=== PATIENT | male | born 1945 | race Caucasian/White ===

== ENCOUNTER 2020-01-31 08:44 | Inpatient (IN) | payer MEDICARE, OTHER ==
[2020-01-31] MEDS ORDERED: Albuterol Sulfate 2.5 mg/0.5 ml Neb ONE ×2 (08:54→08:57)
[2020-01-31] MEDS ORDERED: Magnesium 2 GM/50 ML BAG (IN WATER) ONE (08:54)
[2020-01-31] MEDS ORDERED: methylPREDNISolone Sod Succ/PF 125 MG/2 ML VIAL ONE (08:54)
--- NOTE | 2020-01-31 09:19 | RAD ---
Chest one view HISTORY: Respiratory distress. Intubated. FINDINGS: Cardiac silhouette is magnified by projection and partially obscured by shallow inspiration and prominent patchy infiltrates at each lung base. Mediastinum is midline. Tip of the endotracheal catheter approaches the shanna. Calcification of the aorta. Pulmonary vasculature is engorged. No evidence of pneumothorax. IMPRESSION : Endotracheal catheter should probably be withdrawn approximately Bibasilar infiltrates may reflect pneumonitis or be related pulmonary vascular congestion
--- NOTE | 2020-01-31 09:43 | CT ---
CT arteriogram chest with IV contrast and 3-D imaging HISTORY: Mastoid distress. COVID positive. FINDINGS: There is good contrast opacification pulmonary arteries and thoracic aorta with normal bran ashwin of the great vessels at the aortic arch. Prominent calcification throughout the coronary arteries and other arterial structures. Lungs are hyperinflated with prominent bullous changes at each upper lobe. Peripheral interstitial sc arring more pronounced at the lower lobes. Moderate bibasilar atelectasis. Peripheral, patchy groundglass infiltrates involve each lung, relatively sparing the emphysematous bu llae of the upper lobes. No pleural fluid or mediastinal adenopathy. Within the partially visualized upper abdomen, calculus of the right kidney measures at least 0.8 cm greatest diameter. Lobular cysts are present throughout the hepatic parenchyma. Chronic appearing compression deformity is noted at a vertebral body near the thoracolumbar junction. IMPRESSION : No CT evidence of pulmonary embolus. CT findings of COVID pneumonitis, when combined with prominent emphysematous changes, result in disea se involving the entirety of the lungs. Prominent atherosclerosis. Nonobstructing right renal calculus partially visualized.
[2020-01-31 09:53] LABS: Bilirubin Negative (Negative); Blood, Urine Negative (Negative); Clarity Clear (Clear); Glucose, Urine (Dipstick) 200 mg/dL (Negative); Ketone, Urine Negative (Negative); Leukocyte Negative Leu/uL (Negative); Nitrite Negative (Negative); Protein, Urine (Dipstick) 20 mg/dL (Neg-Trace); Specific Gravity, Urine 1.025 (1.002-1.036); Urobilinogen Normal mg/dL (Less than 2)
[2020-01-31 10:17] LABS: Actual Bicarbonate (HCO3a) 24.4 mEq/L (22-28); Analyzer IN Cardio ER; Calcium, Ionized (arterial) 1.25 mmol/L (1.12-1.30); Carboxyhemoglobin (COHb) 0.8 gm% (0.0-3.0); Hemoglobin (Hb) 15.6 g/dL (14.0-18.0); O2 Tension (PaO2), arterial 80.9 mmHg (> 70.0); Potassium - ABG Lab 3.96 mmol/L (3.70-5.30)
[2020-01-31 10:31] LABS: Actual Bicarbonate (HCO3a) 20.8 mEq/L (22-28); Analyzer IN Cardio ER; CO2 Tension 68.2 mmHg (35.0-45.0); Calcium, Ionized (arterial) 1.21 mmol/L (1.12-1.30); Carboxyhemoglobin (COHb) 1.1 gm% (0.0-3.0); Hemoglobin (Hb) 15.1 g/dL (14.0-18.0); Potassium - ABG Lab 4.59 mmol/L (3.70-5.30)
[2020-01-31 10:32] LABS: O2 Tension (PaO2), arterial 32.7 mmHg (> 70.0); Puncture Site LRA
[2020-01-31 10:34] LABS: #Eosinphils 0.1 thou/uL (0.0-0.7); #Lymphocytes 2.3 thou/uL (1.20-3.40); #Monocytes 0.8 thou/uL (0.11-0.59); #Neutrophils 13.4 thou/uL (1.40-6.50); %Basophils 0.1 % (0.0-1.0); %Eosinophils 0.4 % (0.0-10.0); %Lymphocytes 13.6 % (21.0-51.0); %Monocytes 4.7 % (0.0-10.0); %Neutrophils 81.1 % (42.0-75.0); Hemoglobin 15.5 g/dL (14.0-18.0); Mean Corpuscular HGB CONC 32.9 g/dL (32.0-36.0); Mean Corpuscular Volume 88.1 fL (78.0-98.0); Mean Platelet Volume 8.7 fL (7.4-10.4); Platelet Count 318 thou/uL (130-400); RBC Distribution Width 13.2 % (11.5-14.5); Red Blood Cell (RBC) Count 5.33 mill/uL (4.70-6.10); White Blood Cell (WBC) Count 16.5 thou/uL (4.8-10.8)
[2020-01-31] MEDS ORDERED: Azithromycin 500 MG VIAL ONE (10:37)
[2020-01-31 10:38] LABS: CO2 Tension 85.4 mmHg (35.0-45.0); Puncture Site LRA; pH, Arterial 7.07 (7.35-7.45)
[2020-01-31] MEDS ORDERED: fentaNYL Citrate/PF 2,000 MCG in Sodium Chloride 0.9% 60 ML IV SCH (10:45)
[2020-01-31 10:47] LABS: ALT (SGPT) 16 U/L (8-55); AST (SGOT) 34 U/L (5-34); Albumin 3.7 g/dL (3.4-4.8); Alkaline Phosphatase 65 U/L (40-110); Anion Gap 21 mmol/L (10-20); BUN (Urea Nitrogen) 51 mg/dL (8.4-25.7); Bilirubin, Total 0.5 mg/dL (0.2-1.2); Calc. Creatinine Clearance 0 mL/min (70-130); Calcium 8.9 mg/dL (7.8-10.44); Carbon Dioxide 20 mmol/L (23-31); Chloride 95 mmol/L (98-107); Estimated GFR-MDRD 41; Globulin 3.4 g/dL (2.4-3.5); Glucose 456 mg/dL (83-110); Protein, Total 7.1 g/dL (5.8-8.1); Sodium 132 mmol/L (136-145)
[2020-01-31 11:18] LABS: CKMB 1.2 ng/mL (0-6.6)
[2020-01-31] MEDS ORDERED: Ventilator Sedation Protocol 1 EACH FS ONE (12:53)
[2020-01-31] MEDS ORDERED: Labetalol HCl 100 MG/20 ML VIAL SLOW IVP PRN (12:53)
[2020-01-31] MEDS ORDERED: Dextrose 5% in Water 1,000 ML IV PRN (12:53)
[2020-01-31] MEDS ORDERED: Dextrose 50% Abboject 50 ML SYRINGE SLOW IVP PRN (12:53)
[2020-01-31] MEDS ORDERED: HumaLOG 300 UNITS/3 ML VIAL SC PRN (12:53)
[2020-01-31] MEDS ORDERED: Ondansetron PF 4 MG/2 ML Vial IVP PRN (12:53)
[2020-01-31] MEDS ORDERED: Vecuronium 10 MG VIAL ONE (12:55)
[2020-01-31] MEDS ORDERED: Sterile Water 0 ML ONE (12:55)
[2020-01-31] MEDS ORDERED: Sterile Water 10 ML ONE ×3 (12:57→22:01)
[2020-01-31] MEDS ORDERED: DISCONTINUE PREVIOUS NARCOTIC PAIN MEDICATIONS AND BENZODIAZEPINES FS SCH (13:09)
[2020-01-31] MEDS ORDERED: Morphine 2 MG/ML VIAL SLOW IVP PRN (13:09)
[2020-01-31] MEDS ORDERED: Propofol BOLUS 1,000 MG/100 ML VIAL IV PRN (13:09)
[2020-01-31] MEDS ORDERED: Fentanyl BOLUS 250 ML IVPB PRN (13:09)
[2020-01-31 13:19] LABS: Base Excess (BEa) -9.9 mEq/L (-2.0 to +3.0); CO2 Tension 53.9 mmHg (35.0-45.0); Calcium, Ionized (arterial) 1.19 mmol/L (1.12-1.30); Carboxyhemoglobin (COHb) 0.8 gm% (0.0-3.0); Hemoglobin (Hb) 14.3 g/dL (14.0-18.0); Potassium - ABG Lab 4.46 mmol/L (3.70-5.30)
[2020-01-31] MEDS: Nitroglycerin 2% Ointment 1 INCH/1 GM Packet TOP SCH ×2 (14:40→20:05)
[2020-01-31] MEDS: Sodium Bicarbonate 150 MEQ in Dextrose 5% in Water 1,000 ML IV SCH (14:49)
[2020-01-31] MEDS: cefTRIAXone\\ROCEPHIN 1 GM in Sodium Chloride 0.9% 100 ML IVPB SCH (14:50)
[2020-01-31] MEDS ORDERED: Iopamidol-370 76% 500 ML 1 ML ONE (14:52)
[2020-01-31] MEDS: HUMULIN R 100 UNITS in Sodium Chloride 0.9% 100 ML IVPB SCH ×2 (14:52→20:45)
[2020-01-31] MEDS: Vecuronium 10 MG VIAL IVP PRN ×3 (16:15→22:03)
[2020-01-31 16:27] LABS: O2 Tension (PaO2), arterial 58.5 mmHg (> 70.0); Puncture Site LRA; pH, Arterial 7.17 (7.35-7.45)
[2020-01-31 16:28] LABS: ALV-art Gradient 587.125 (0-20)
--- NOTE | 2020-01-31 16:49 | RAD ---
PORTABLE CHEST: History: ET tube placement Comparison: Earlier today. FINDINGS: ET tube has been retracted and now above the shanna. Central line is in adequate position with tip ov erlying the SVC. Bilateral infiltrates, more confluent on the right again noted. No acute interval change. IMPRESSION: As above. POS: AGW
[2020-01-31] MEDS: Hydrocortisone Sod Succ/PF 100 mg/2 ml Vial IVP SCH (17:03)
[2020-01-31] MEDS: Famotidine/PF 20 mg/2ml Vial SLOW IVP SCH (20:04)
[2020-01-31] MEDS: Nystatin Cream 15 GM TUBE TOP SCH (20:04)
[2020-01-31] MEDS: Norepinephrine 8 MG/0.9% NS 250 ML IVPB SCH (20:45)
[2020-01-31] MEDS: fentaNYL Citrate/PF 2,000 MCG in Sodium Chloride 0.9% 60 ML IV SCH (22:13)
[2020-02-01] MEDS: Hydrocortisone Sod Succ/PF 100 mg/2 ml Vial IVP SCH ×4 (00:04→17:30)
[2020-02-01] MEDS: HUMULIN R 100 UNITS in Sodium Chloride 0.9% 100 ML IVPB SCH ×2 (00:04→14:24)
[2020-02-01] MEDS: Lorazepam 2 MG/ML VIAL SLOW IVP PRN ×5 (00:50→19:56)
[2020-02-01] MEDS: Vecuronium 10 MG VIAL IVP PRN ×6 (01:21→19:56)
[2020-02-01] MEDS: Sodium Bicarbonate 150 MEQ in Dextrose 5% in Water 1,000 ML IV SCH ×2 (01:21→08:00)
[2020-02-01 04:42] LABS: Anion Gap 16 mmol/L (10-20); BUN (Urea Nitrogen) 60 mg/dL (8.4-25.7); Calc. Creatinine Clearance 41 mL/min (70-130); Calcium 8.2 mg/dL (7.8-10.44); Carbon Dioxide 29 mmol/L (23-31); Chloride 98 mmol/L (98-107); Estimated GFR-MDRD 34; Glucose 168 mg/dL (83-110); Potassium 3.7 mmol/L (3.5-5.1); Sodium 139 mmol/L (136-145)
[2020-02-01 04:50] LABS: Hemoglobin 12.7 g/dL (14.0-18.0); Mean Corpuscular HGB CONC 33.1 g/dL (32.0-36.0); Mean Corpuscular Hemoglobin 29.3 pg (27.0-31.0); Mean Corpuscular Volume 88.4 fL (78.0-98.0); Mean Platelet Volume 8.1 fL (7.4-10.4); Platelet Count 281 thou/uL (130-400); Red Blood Cell (RBC) Count 4.34 mill/uL (4.70-6.10); White Blood Cell (WBC) Count 17.3 thou/uL (4.8-10.8)
[2020-02-01 04:51] LABS: Band 23 % (5-11); Lymphocytes 6 % (21-51); MDiff Complete? YES; Monocytes 4 % (0-10); Nucleated RBC 1 % (0)
[2020-02-01] MEDS: Nitroglycerin 2% Ointment 1 INCH/1 GM Packet TOP SCH ×3 (05:30→20:50)
[2020-02-01] MEDS: Propofol 1,000 MG/100 ML VIAL IV PRN ×2 (06:01→19:55)
[2020-02-01 07:21] LABS: Base Excess (BEa) 3.7 mEq/L (-2.0 to +3.0); CO2 Tension 58.3 mmHg (35.0-45.0); Calcium, Ionized (arterial) 1.12 mmol/L (1.12-1.30); Carboxyhemoglobin (COHb) 0.4 gm% (0.0-3.0); Hemoglobin (Hb) 14.4 g/dL (14.0-18.0); O2 Tension (PaO2), arterial 61.9 mmHg (> 70.0); Potassium - ABG Lab 3.68 mmol/L (3.70-5.30); pH, Arterial 7.34 (7.35-7.45)
[2020-02-01 07:24] LABS: ALV-art Gradient 221.725 (0-20); Puncture Site LRA
[2020-02-01] MEDS: Famotidine/PF 20 mg/2ml Vial SLOW IVP SCH ×2 (08:52→19:56)
[2020-02-01] MEDS: Nystatin Cream 15 GM TUBE TOP SCH ×2 (08:53→19:55)
[2020-02-01] MEDS ORDERED: Enoxaparin Sodium 40 MG/0.4 ML SYRINGE SC SCH (09:00)
[2020-02-01] MEDS: Dextrose 5 %-0.45 % NaCl 1,000 ML IV SCH ×2 (09:31→21:57)
[2020-02-01] MEDS: fentaNYL Citrate/PF 2,000 MCG in Sodium Chloride 0.9% 60 ML IV SCH (09:41)
[2020-02-01] MEDS: Azithromycin 500 MG in Sodium Chloride 0.9% 250 ML 250 ML IVPB SCH (10:34)
[2020-02-01] MEDS: Norepinephrine 8 MG/0.9% NS 250 ML IVPB SCH (10:49)
--- NOTE | 2020-02-01 10:49 | PRG ---
DATE OF SERVICE: 02/01/2020 35 minutes of critical care time. SUBJECTIVE: This patient remains intubated in a prone position, on mechanical ventilation. OBJECTIVE: VITAL SIGNS: His temperature is 98.2, pulse 108, blood pressure 135/77, O2 saturation 96%. 24-hour intake 2822, output 1027. HEENT: Unremarkable. NECK: No JVD. LUNGS: Coarse breath sounds. CARDIAC: S1 and S2. Slightly tachycardic. ABDOMEN: Soft. EXTREMITIES: No edema. LABORATORY DATA: Ferritin of 4533. Sodium 139, potassium 3.7, chloride 98, CO2 of 29, BUN 60, creatinine 1.9, glucose 168. White blood cell count 17.3, hematocrit 38.4, and platelet count 281, 23% bands. PH of 7.34, pCO2 of 58, pO2 of 61, that is on bilevel rate 26 with FiO2 of 50%, high PEEP pressure 23, low PEEP pressure 12. Chest x-ray continues to show bilateral infiltrates, although improved lung volumes. ASSESSMENT: 1. COVID-19 pneumonia. 2. Acute hypoxic respiratory failure requiring mechanical ventilation. 3. Diabetes mellitus with poor control. PLAN: 1. The metabolic acidosis seems to have been corrected with the bicarbonate drip. We can go ahead and stop the bicarbonate infusion. 2. Continue low-dose insulin infusion. 3. Continue steroids. 4. Increase anticoagulant dose. 5. I will update family. 6. Prognosis is extremely poor. Job ID: [id number]
--- NOTE | 2020-02-01 10:58 | PDOC.HOSPP ---
- Subjective Encounter Date: 02/01/20 Encounter Time: 10:56 Subjective: Mr. Duque was seen at a distance for respiratory failure due to COVID Pneumonia. He remains intubated in prone position. - Objective Vital Signs & Weight: Vital Signs (12 hours) Temp Pulse Resp BP Pulse Ox 02/01/20 10:48 111 H 137/74 02/01/20 10:00 26 H 02/01/20 08:00 26 H 02/01/20 07:19 95 02/01/20 07:04 110 H 151/82 H 02/01/20 06:00 26 H 02/01/20 04:00 98.2 F 26 H 02/01/20 02:27 93 107/60 02/01/20 02:00 26 H 02/01/20 00:00 98.0 F 26 H Weight Weight 188 lb 4.396 oz Most Recent Monitor Data Heart Rate from ECG 108 NIBP 121/73 NIBP BP-Mean 89 Respiration from ECG 26 SpO2 94 I&O: 01/31/20 02/01/20 02/02/20 06:59 06:59 06:59 Intake Total 2822.2 0 Output Total 1027 10 Balance 1795.2 -10 Result Diagrams: 02/01/20 04:02 02/01/20 04:02 Additional Labs: Accuchecks 02/01/20 02/01/20 02/01/20 09:17 06:21 05:37 POC Glucose 290 H 224 H 201 H 02/01/20 02/01/20 02/01/20 04:10 03:16 02:26 POC Glucose 174 H 206 H 227 H 02/01/20 02/01/20 01/31/20 01:05 00:14 23:17 POC Glucose 282 H 328 H 377 H 01/31/20 01/31/20 01/31/20 22:13 21:01 20:12 POC Glucose 450 H 496 H 496 H 01/31/20 01/31/20 01/31/20 18:39 13:57 12:25 POC Glucose Greater than 550 H* 539 H 521 H Hospitalist ROS - Medication Medications: Active Medications Generic Name Dose Route Start Last Admin Trade Name Freq PRN Reason Stop Dose Admin Famotidine 20 mg 01/31/20 21:00 02/01/20 08:52 Pepcid SLOW IVP 20 mg Q12HR DHAVAL Administration Hydrocortisone Sodium Succinate 100 mg 01/31/20 18:00 02/01/20 05:29 Solu-Cortef IVP 100 mg Q6HR DHAVAL Administration Azithromycin 500 mg/ Sodium 250 mls @ 250 mls/hr 02/01/20 11:00 02/01/20 10: 34 Chloride IVPB 250 mls 1100 DHAVAL Administration Ceftriaxone Sodium 1 gm/ 100 mls @ 200 mls/hr 01/31/20 14:00 01/31/20 14:50 Sodium Chloride IVPB 100 mls 1400 DHAVAL Administration Insulin Human Regular 100 101 mls @ 0 mls/hr 01/31/20 13:00 02/01/20 00:04 units/ Sodium Chloride IVPB 101 mls INF DHAVAL Administration Protocol Titrate Norepinephrine Bitartrate 250 mls @ 0 mls/hr 01/31/20 13:00 02/01/20 10:49 Levophed IVPB 250 mls INF DHAVAL Administration Protocol Titrate Fentanyl Citrate 2,000 mcg/ 100 mls @ 0 mls/hr 01/31/20 13:09 02/01/20 09:41 Sodium Chloride IV 03/01/20 13:09 100 mls INF DHAVAL Administration Protocol Per Protocol Dextrose/Sodium Chloride 1,000 mls @ 75 mls/hr 02/01/20 09:15 02/01/20 09:31 D5 1/2 Ns IV Not Given .[id number] DHAVAL Lorazepam 2 mg 01/31/20 13:09 02/01/20 09:17 Ativan SLOW IVP 03/01/20 13:09 2 mg Q1H PRN Administration Breakthrough agitation Nitroglycerin 0.5 inch 01/31/20 14:00 02/01/20 05:30 Nitro-Bid 2% Ointment TOP Not Given Q8HR DHAVAL Nystatin 1 gm 01/31/20 21:00 02/01/20 08:53 Mycostatin Cream TOP 1 gm BID DHAVAL Administration Propofol 1,000 mg 01/31/20 13:09 02/01/20 06:01 Diprivan IV 03/01/20 13:09 1,000 mg INF PRN Administration TO ACHIEVE GOAL RASS Protocol Sodium Chloride 10 ml 01/31/20 21:00 02/01/20 08:53 Flush - Normal Saline IVF 10 ml Q12HR DHAVAL Administration Vecuronium [place] 10 mg 01/31/20 12:53 02/01/20 09:17 Norcuron IVP 10 mg Q30MIN PRN Administration Agitation Hosp A/P (1) Acute respiratory failure due to COVID-19 Code(s): U07.1 - COVID-19; J96.00 - ACUTE RESPIRATORY FAILURE, UNSP W HYPOXIA OR HYPERCAPNIA Status: Acute (2) Acute respiratory failure with hypoxemia Code(s): J96.01 - ACUTE RESPIRATORY FAILURE WITH HYPOXIA Status: Acute (3) Hypertension Code(s): I10 - ESSENTIAL (PRIMARY) HYPERTENSION Status: Chronic (4) Diabetes mellitus type 2 in nonobese Code(s): E11.9 - TYPE 2 DIABETES MELLITUS WITHOUT COMPLICATIONS Status: Chronic (5) Septic shock Code(s): A41.9 - SEPSIS, UNSPECIFIED ORGANISM; R65.21 - SEVERE SEPSIS WITH SEPTIC SHOCK Status: Acute - Plan * Acute respiratory failure due to COVID pneumonia- he remains intubated in prone position * Continue Azithromycin and Rocephin, and Stress dose steroids * DM- blood glucose is elevated- will add Lantus, and Continue SSI * Agree with increasing the anticoagulation dose * Septic Shock- He continue to require pressor support * Prognosis is guarded
[2020-02-01] MEDS ORDERED: Insulin Glargine 10 UNITS in Pre-Filled Syringe 1 EACH SC SCH (11:15)
[2020-02-01] MEDS: cefTRIAXone\\ROCEPHIN 1 GM in Sodium Chloride 0.9% 100 ML IVPB SCH (13:13)
--- NOTE | 2020-02-01 15:59 | OP ---
DATE OF PROCEDURE: 01/31/2020 PROCEDURE: Central line placement. PREOPERATIVE DIAGNOSIS: Poor IV access. POSTOPERATIVE DIAGNOSIS: Successful left subclavian central line placement. ANESTHESIA: None. DESCRIPTION OF PROCEDURE: This was done on an emergent basis as the patient was being prone ventilated and needed Levophed for hypotension. SUBJECTIVE: The patient was placed in the supine position in Trendelenburg. The left subclavian area was 1st shaved and hair was removed. The area was cleansed with chlorhexidine and draped sterilely. Using modified Seldinger technique, a triple-lumen catheter was placed in the left subclavian vein. Initially, I had a hard time passing the dilator over the wire, so I had to get a 2nd kit and re-stick him. Second attempt was successful in placing the central line in the left subclavian vein. Three ports flushed venous blood. Confirmation was confirmed by x-ray. There was no pneumothorax. Job ID: [id number]
--- NOTE | 2020-02-01 16:19 | CON ---
DATE OF CONSULTATION: 01/31/2020 REASON FOR CONSULTATION: COVID pneumonia. The following encompasses 1 hour of critical care time. CONSULTING PHYSICIAN: Jin Hernandez MD HISTORY OF PRESENT ILLNESS: This is a 74-year-old male of [place] descent, who was diagnosed with COVID virus about 10 days ago. He was doing reasonably well at home until today when he became so short of breath that his called paramedics. He was intubated en route to the hospital. In the ER, he was so hypoxic, he had to be prone, ventilated. PAST MEDICAL HISTORY: 1. Diabetes mellitus, type 2 of questionable control. 2. Hypertension. 3. Gout. PAST SURGICAL HISTORY: 1. Hernia repair. 2. Buttock abscess, incision and drainage. ALLERGIES: NONE. SOCIAL HISTORY: He quit smoking at age 35. Does not consume alcohol. Does not use illicit drugs. 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 MEDICATIONS: Prior to admission; 1. Metformin 500 mg two twice daily. 2. Lisinopril 12.5 mg twice daily. 3. Allopurinol 300 mg daily. 4. Simvastatin 40 mg nightly. 5. Amlodipine 10 mg daily. FAMILY MEDICAL HISTORY: Unremarkable except for the fact that his currently has COVID. REVIEW OF SYSTEMS: Cannot be obtained as the patient is currently on mechanical ventilation. PHYSICAL EXAMINATION: VITAL SIGNS: Blood pressure 82/53, pulse 100, respirations 26, O2 saturation 100%, and temperature 99.7. GENERAL: The patient is a heavyset male, who is intubated and sedated. HEENT: Pupils are reactive. Oropharynx, intubated. NECK: No adenopathy or JVD. LUNGS: Coarse breath sounds bilaterally. CARDIOVASCULAR: S1 and S2. Regular. ABDOMEN: Soft. EXTREMITIES: No edema. IMAGING: His CT of the chest shows diffuse bilateral infiltrates, more prominent on the right. LABORATORY DATA: Sodium 132, potassium 4, chloride 95, CO2 of 20, BUN 51, creatinine 1.6, and glucose 456. Lactate 4.7. Troponin 0.06. Albumin 3.7. PH of 7.07, pCO2 of 85, pO2 of 80 on assist control, rate 20, tidal volume 400, PEEP 10, and FiO2 of 100%. White blood cell count 16.5, hematocrit 47, and platelet count 318. ASSESSMENT: 1. COVID-19 pneumonia. 2. Acute hypoxic respiratory failure. 3. Uncontrolled diabetes mellitus. PLAN: 1. Prone position ventilation in bilevel mode. 2. IV steroids. 3. Convalescent plasma. 4. Anticoagulation - initially 40 mg daily, but increased dose tomorrow as he is currently using from a central line. 5. Insulin drip for blood sugar control. 6. Daily labs. 7. I spoke with the patient's on the phone. I told her that he is in poor shape and has about a 90% chance of succumbing to this illness. Job ID: [id number]
--- NOTE | 2020-02-01 19:07 | HP ---
PRIMARY CARE PHYSICIAN: Unknown. CHIEF COMPLAINT: Shortness of breath. HISTORY OF PRESENT ILLNESS: The history of present illness was taken from the ER records as the patient is currently unable to give a history as he was intubated. His is not in the emergency room. Mr. Duque is a 74-year-old gentleman who apparently has had COVID like symptoms since January 20 of this month, and he has been known COVID positive. He was apparently doing okay until just recently where he became progressively more short of breath and was coughing. His wanted him to come to the hospital yesterday, but she was unable to convince him to go to the ER. Today, he became progressively more short of breath and she called EMS. When they arrived, he had an O2 saturation that was reported to be in the 30s. He was intubated in the field and brought to the emergency room. His O2 sats fell in the 50s even while intubated. A CT scan was done to rule out PE, which was negative, and he was placed in the prone position. He has been given fentanyl, azithromycin, and magnesium as well as 125 mg of methylprednisolone. He is being admitted for further evaluation. Otherwise, no other history is currently obtainable. REVIEW OF SYSTEMS: Unobtainable as the patient was intubated. PAST MEDICAL HISTORY: Reported as being hypertension and diabetes mellitus. PAST SURGICAL HISTORY: Unknown. ALLERGIES: NO KNOWN DRUG ALLERGIES. SOCIAL HISTORY: Unobtainable. FAMILY HISTORY: Also unobtainable. CURRENT MEDICATIONS: The only medication that I am aware of is lisinopril, but these will need to be obtained. PHYSICAL EXAMINATION: GENERAL: He was intubated, sedated. VITAL SIGNS: Blood pressure was 176/101, heart rate 125, respiratory rate of 20, and temperature is 99.9. HEENT: Pupils are equal, round, and reactive. Extraocular muscles are intact. NECK: There is no jugular venous distention. LUNGS: He has decreased breath sounds as well as some rales at the bases. CARDIOVASCULAR: Heart rate is rapid, but regular. I was unable to appreciate any murmurs, clicks, or rubs. ABDOMEN: Soft. Positive bowel sounds. EXTREMITIES: There is no edema. No calf tenderness. No erythema. NEUROLOGIC: He is moving all extremities. SKIN AND INTEGUMENT: No obvious skin lesions or rashes. LABORATORY RESULTS: White blood cell count 16.5, hemoglobin 15.5, hematocrit is 47.0, and platelets 318. Sodium 132, potassium 4.0, chloride is 95, CO2 is 20, BUN is 51, creatinine 1.65, and glucose is 456. Urinalysis is essentially negative. The initial ABG; the pH is 7.1, pCO2 of 68.2, PO2 of 32.7, and this is on while he is ventilated with an SIMV of 18 FiO2 O2 of 100%. On x-ray, this is by my reading, cardiomegaly. He has right pleural effusion and bilateral infiltrates. His EKG appears to be sinus rhythm, is tachycardic. The heart rate is 130. He has a wide QRS complex, and it appears to be a right bundle-branch block. ASSESSMENT AND PLAN: 1. This is a 74-year-old gentleman who has known COVID infection, who presents with acute respiratory failure with hypoxemia. He also has sepsis with severe both metabolic and respiratory acidosis. He will be admitted to the ICU. He has already been given IV antibiotics as well as IV steroids, which will be continued. Continue ventilator support. He has been placed in the prone position. The siding coreboard inspector has already been consulted. He will be placed on deep venous thrombosis and gastrointestinal prophylaxis. He appears to be out of the window for remdesivir. However, we will defer to the supply specialist as to whether or not he would benefit from convalescent serum. 2. Diabetes mellitus. He will be placed on a sliding scale insulin. Start tube feedings. 3. Hypertension. This will be managed with p.r.n. medications, possibly transdermal patch, given the patient's overall comorbid conditions including hypertension, diabetes, and CT evidence of emphysema, the patient's prognosis is guarded. Job ID: [id number] MTDD
[2020-02-01] MEDS: Enoxaparin Sodium 40 MG/0.4 ML SYRINGE SC SCH (19:56)
[2020-02-02] MEDS: Hydrocortisone Sod Succ/PF 100 mg/2 ml Vial IVP SCH ×5 (00:10→23:42)
[2020-02-02] MEDS: Norepinephrine 8 MG/0.9% NS 250 ML IVPB SCH ×2 (01:21→12:32)
[2020-02-02] MEDS: Propofol 1,000 MG/100 ML VIAL IV PRN ×3 (04:04→23:42)
[2020-02-02] MEDS: Lorazepam 2 MG/ML VIAL SLOW IVP PRN ×4 (04:04→23:43)
[2020-02-02 04:49] LABS: Anion Gap 16 mmol/L (10-20); BUN (Urea Nitrogen) 65 mg/dL (8.4-25.7); Calc. Creatinine Clearance 38 mL/min (70-130); Calcium 7.9 mg/dL (7.8-10.44); Carbon Dioxide 28 mmol/L (23-31); Chloride 97 mmol/L (98-107); Estimated GFR-MDRD 31; Glucose 224 mg/dL (83-110); Potassium 4.1 mmol/L (3.5-5.1); Sodium 137 mmol/L (136-145)
[2020-02-02 05:03] LABS: Band 10 % (5-11); Hemoglobin 12.6 g/dL (14.0-18.0); Lymphocytes 4 % (21-51); MDiff Complete? YES; Mean Corpuscular Hemoglobin 29.3 pg (27.0-31.0); Mean Corpuscular Volume 88.7 fL (78.0-98.0); Mean Platelet Volume 8.1 fL (7.4-10.4); Monocytes 5 % (0-10); Platelet Count 329 thou/uL (130-400); RBC Distribution Width 13.3 % (11.5-14.5); Red Blood Cell (RBC) Count 4.31 mill/uL (4.70-6.10); White Blood Cell (WBC) Count 20.8 thou/uL (4.8-10.8)
[2020-02-02] MEDS: Nitroglycerin 2% Ointment 1 INCH/1 GM Packet TOP SCH ×3 (05:42→22:08)
[2020-02-02 07:15] LABS: Actual Bicarbonate (HCO3a) 29.1 mEq/L (22-28); Base Excess (BEa) 3.8 mEq/L (-2.0 to +3.0); CO2 Tension 46.9 mmHg (35.0-45.0); Carboxyhemoglobin (COHb) 0.6 gm% (0.0-3.0); Potassium - ABG Lab 3.85 mmol/L (3.70-5.30); pH, Arterial 7.41 (7.35-7.45)
[2020-02-02] MEDS: fentaNYL Citrate/PF 2,000 MCG in Sodium Chloride 0.9% 60 ML IV SCH (07:19)
--- NOTE | 2020-02-02 07:35 | RAD ---
Exam: Chest one view HISTORY:Pneumonia Comparison: 01/31/2020 FINDINGS: Lines and tubes: Endotracheal and nasogastric tube are unchanged. Redemonstration of a stable left-si ded subclavian vascular catheter. Cardiac silhouette: Normal Aorta: Unremarkable Pulmonary vessels: Normal Costophrenic angles: Clear LUNGS: Stable emphysematous changes with probably bilateral lower lobe infiltrates. Pneumothorax: None Osseous abnormalities: None IMPRESSION: No significant interval change.
[2020-02-02 07:57] LABS: O2 Tension (PaO2), arterial 59.2 mmHg (> 70.0); Puncture Site RRA
[2020-02-02 07:58] LABS: ALV-art Gradient 274.325 (0-20)
[2020-02-02 09:32] LABS: Neutrophil 81 % (42-75)
[2020-02-02] MEDS: HUMULIN R 100 UNITS in Sodium Chloride 0.9% 100 ML IVPB SCH ×2 (09:43→09:47)
[2020-02-02] MEDS: Enoxaparin Sodium 40 MG/0.4 ML SYRINGE SC SCH ×2 (09:46→21:30)
[2020-02-02] MEDS: Famotidine/PF 20 mg/2ml Vial SLOW IVP SCH (09:47)
[2020-02-02] MEDS: Nystatin Cream 15 GM TUBE TOP SCH ×2 (09:48→21:30)
[2020-02-02] MEDS: Azithromycin 500 MG in Sodium Chloride 0.9% 250 ML 250 ML IVPB SCH (09:51)
[2020-02-02] MEDS: Insulin Glargine 10 UNITS in Pre-Filled Syringe 1 EACH SC SCH (09:51)
--- NOTE | 2020-02-02 10:05 | PRG ---
DATE OF SERVICE: 02/02/2020 35 minutes of critical care time. SUBJECTIVE: The patient remains intubated on mechanical ventilation. There have been no acute changes overnight. He is in a supine position. OBJECTIVE: VITAL SIGNS: Temperature 97.9, pulse 97, blood pressure 106/64. He remains on a norepinephrine drip at 13 mcg/minute. 24-hour intake 2478, output 715. HEENT: Unremarkable. NECK: No JVD. LUNGS: Coarse breath sounds. CARDIAC: S1, S2. Regular. ABDOMEN: Soft. EXTREMITIES: No edema. LABORATORY DATA: PH 7.41, pCO2 of 46, pO2 of 59, that is on pressure control ventilation with top pressure of 21, PEEP of 12, and FiO2 of 55%. White blood cell count of 20, hematocrit 38.3, and platelet count 329. Sodium 137, potassium 4.1, chloride 97, CO2 of 28, BUN 65, creatinine 2.1, and glucose 224. ASSESSMENT: 1. COVID-19 pneumonia. 2. Acute hypoxic respiratory failure, requiring mechanical ventilation. 3. Diabetes mellitus. PLAN: 1. Continue insulin drip. 2. Continue steroids. 3. Continue anticoagulation. 4. I have decreased his pressure on the ventilator. I have also decreased his FiO2. I think, he will be intubated for quite some time. Job ID: [id number]
[2020-02-02 10:53] LABS: Neutrophil 67 % (42-75)
[2020-02-02] MEDS: cefTRIAXone\\ROCEPHIN 1 GM in Sodium Chloride 0.9% 100 ML IVPB SCH (12:29)
[2020-02-02] MEDS: Dextrose 5 %-0.45 % NaCl 1,000 ML IV SCH (12:29)
--- NOTE | 2020-02-02 17:02 | PDOC.HOSPP ---
- Subjective Encounter Date: 02/02/20 Encounter Time: 17:00 Subjective: Mr. Duque was seen at a distance today in follow-up of COVID pneumonia with respiratory failure. He remains intubated. - Objective Vital Signs & Weight: Vital Signs (12 hours) Temp Pulse Resp BP Pulse Ox 02/02/20 16:00 26 H 02/02/20 14:05 100 117/69 02/02/20 14:00 26 H 02/02/20 12:00 98.1 F 26 H 02/02/20 10:28 96 104/64 02/02/20 10:00 26 H 02/02/20 08:00 97.9 F 26 H 95 02/02/20 07:01 105 H 111/64 02/02/20 06:00 26 H Weight Admit Weight 188 lb Weight 188 lb 4.396 oz Most Recent Monitor Data Heart Rate from ECG 97 NIBP 108/66 NIBP BP-Mean 80 Respiration from ECG 28 SpO2 98 I&O: 02/01/20 02/02/20 02/03/20 06:59 06:59 06:59 Intake Total 2822.2 2478.4 250 Output Total 1027 750 490 Balance 1795.2 1728.4 -240 Result Diagrams: 02/02/20 04:00 02/02/20 04:00 Additional Labs: Accuchecks 02/02/20 02/02/20 02/02/20 16:56 14:52 12:39 POC Glucose 121 H 106 118 H 02/02/20 02/02/20 02/02/20 10:13 07:49 06:07 POC Glucose 104 109 174 H 02/02/20 02/02/20 02/02/20 04:18 02:12 00:10 POC Glucose 221 H 233 H 136 H 02/01/20 02/01/20 02/01/20 22:07 20:11 17:43 POC Glucose 144 H 141 H 156 H 01/31/20 01/31/20 17:29 15:54 POC Glucose Greater than 550 H* Greater than 550 H* Hospitalist ROS - Medication Medications: Active Medications Generic Name Dose Route Start Last Admin Trade Name Freq PRN Reason Stop Dose Admin Enoxaparin Sodium 40 mg 02/01/20 21:00 02/02/20 09:46 Lovenox SC 40 mg BID DHAVAL Administration Famotidine 20 mg 02/02/20 09:00 02/02/20 09:47 Pepcid SLOW IVP 20 mg DAILY DHAVAL Administration Hydrocortisone Sodium Succinate 100 mg 01/31/20 18:00 02/02/20 12:28 Solu-Cortef IVP 100 mg Q6HR DHAVAL Administration Insulin Human Regular 100 101 mls @ 0 mls/hr 01/31/20 13:00 02/02/20 09:47 units/ Sodium Chloride IVPB 101 mls INF DHAVAL Administration Protocol Titrate Norepinephrine Bitartrate 250 mls @ 0 mls/hr 01/31/20 13:00 02/02/20 12:32 Levophed IVPB 250 mls INF DHAVAL Administration Protocol Titrate Fentanyl Citrate 2,000 mcg/ 100 mls @ 0 mls/hr 01/31/20 13:09 02/02/20 07:19 Sodium Chloride IV 03/01/20 13:09 100 mls INF DHAVAL Administration Protocol Per Protocol Dextrose/Sodium Chloride 1,000 mls @ 75 mls/hr 02/01/20 09:15 02/02/20 12:29 D5 1/2 Ns IV 1,000 mls .[id number] DHAVAL Administration Insulin Glargine 10 units/ 0.1 mls @ 0 mls/hr 02/02/20 09:00 02/02/20 09:51 Miscellaneous Medication SC 0.1 mls QAM DHAVAL Administration Lorazepam 2 mg 01/31/20 13:09 02/02/20 13:43 Ativan SLOW IVP 03/01/20 13:09 2 mg Q1H PRN Administration Breakthrough agitation Nitroglycerin 0.5 inch 01/31/20 14:00 02/02/20 05:42 Nitro-Bid 2% Ointment TOP Not Given Q8HR DHAVAL Nystatin 1 gm 01/31/20 21:00 02/02/20 09:48 Mycostatin Cream TOP 1 gm BID DHAVAL Administration Propofol 1,000 mg 01/31/20 13:09 02/02/20 09:45 Diprivan IV 03/01/20 13:09 1,000 mg INF PRN Administration TO ACHIEVE GOAL RASS Protocol Sodium Chloride 10 ml 01/31/20 21:00 02/02/20 09:48 Flush - Normal Saline IVF 10 ml Q12HR DHAVAL Administration Vecuronium [place] 10 mg 01/31/20 12:53 02/01/20 19:56 Norcuron IVP 10 mg Q30MIN PRN Administration Agitation Hosp A/P (1) Acute respiratory failure due to COVID-19 Code(s): U07.1 - COVID-19; J96.00 - ACUTE RESPIRATORY FAILURE, UNSP W HYPOXIA OR HYPERCAPNIA Status: Acute (2) Acute respiratory failure with hypoxemia Code(s): J96.01 - ACUTE RESPIRATORY FAILURE WITH HYPOXIA Status: Acute (3) Hypertension Code(s): I10 - ESSENTIAL (PRIMARY) HYPERTENSION Status: Chronic (4) Diabetes mellitus type 2 in nonobese Code(s): E11.9 - TYPE 2 DIABETES MELLITUS WITHOUT COMPLICATIONS Status: Chronic (5) Septic shock Code(s): A41.9 - SEPSIS, UNSPECIFIED ORGANISM; R65.21 - SEVERE SEPSIS WITH SEPTIC SHOCK Status: Acute - Plan * Acute respiratory failure due to COVID pneumonia- he remains intubated in prone position * Continue Azithromycin and Rocephin, and Stress dose steroids * DM- blood glucose is stable * Continue anticoagulation * Septic Shock * Acute kidney injury- likely from ATN from sepsis- worsening- may need nephrology input soon * Prognosis is guarded
[2020-02-02] MEDS: Vecuronium 10 MG VIAL IVP PRN ×2 (19:24→23:42)
[2020-02-02] MEDS ORDERED: Sterile Water 10 ML ONE (23:45)
[2020-02-03] MEDS: Dextrose 5 %-0.45 % NaCl 1,000 ML IV SCH ×2 (01:08→12:16)
[2020-02-03] MEDS: Norepinephrine 8 MG/0.9% NS 250 ML IVPB SCH (01:34)
[2020-02-03] MEDS ORDERED: Fentanyl 5000 MCG/250 ML CADD ONE (04:07)
[2020-02-03] MEDS ORDERED: Sterile Water 0 ML ONE (05:25)
[2020-02-03] MEDS ORDERED: Water For Inject, Bacteriostat 30 ML ONE (05:25)
[2020-02-03] MEDS ORDERED: Hydrocortisone Sod Succ/PF 100 mg/2 ml Vial ONE (05:30)
[2020-02-03] MEDS ORDERED: Lorazepam 2 MG/ML VIAL ONE (05:30)
--- NOTE | 2020-02-03 07:56 | RAD ---
EXAM: CHEST ONE VIEW HISTORY: Pneumonia. Follow-up evaluation. COMPARISON: 02/02/2020 FINDINGS: Endotracheal tube, nasogastric tube, and left-sided vascular catheter remain in place and unchanged i n position. Cardiac silhouette is stable in size centimeters changes are again seen. There is increase in patchy parenchymal and linear opacities at the right lung base with increased interstitia l opacities in the left perihilar region and left lung base which are similar to prior study. No obvious pleural effusion is seen. No other interval change. IMPRESSION: Bilateral interstitial and patchy parenchymal opacities are again seen in greatest at the right lung base. Findings may represent bilateral pneumonia. Atypical pneumonia or viral pneumonitis is a possibility. Follow-up to complete resolution is recommended.
[2020-02-03 07:58] LABS: Anion Gap 14 mmol/L (10-20); BUN (Urea Nitrogen) 61 mg/dL (8.4-25.7); Calc. Creatinine Clearance 56 mL/min (70-130); Calcium 7.8 mg/dL (7.8-10.44); Carbon Dioxide 29 mmol/L (23-31); Chloride 101 mmol/L (98-107); Estimated GFR-MDRD 48; Glucose 164 mg/dL (83-110); Potassium 4.1 mmol/L (3.5-5.1); Sodium 140 mmol/L (136-145)
[2020-02-03] MEDS: cefTRIAXone\\ROCEPHIN 1 GM in Sodium Chloride 0.9% 100 ML IVPB SCH (08:10)
[2020-02-03] MEDS: Propofol 1,000 MG/100 ML VIAL IV PRN ×2 (08:10→18:07)
[2020-02-03] MEDS ORDERED: Enoxaparin Sodium 40 MG/0.4 ML SYRINGE ONE (08:10)
[2020-02-03] MEDS ORDERED: Propofol 1,000 MG/100 ML VIAL IV ONE (08:10)
[2020-02-03] MEDS: Nystatin Cream 15 GM TUBE TOP SCH ×2 (08:10→21:02)
[2020-02-03] MEDS: Enoxaparin Sodium 40 MG/0.4 ML SYRINGE SC SCH ×2 (08:10→21:01)
[2020-02-03] MEDS ORDERED: cefTRIAXone\\ROCEPHIN 1 GM VIAL ONE (08:10)
[2020-02-03] MEDS: Azithromycin 500 MG in Sodium Chloride 0.9% 250 ML 250 ML IVPB SCH (08:10)
[2020-02-03] MEDS: Famotidine/PF 20 mg/2ml Vial SLOW IVP SCH (08:10)
[2020-02-03] MEDS ORDERED: Famotidine 20 MG TAB ONE (08:10)
[2020-02-03] MEDS: Insulin Glargine 10 UNITS in Pre-Filled Syringe 1 EACH SC SCH (08:10)
--- NOTE | 2020-02-03 09:10 | PRG ---
DATE OF SERVICE: 02/03/2020 35 minutes of critical care time. SUBJECTIVE: The patient remains intubated on mechanical ventilation with COVID-19 pneumonia. OBJECTIVE: VITAL SIGNS: Temperature is 98.9, pulse 88, blood pressure 134/72, O2 saturation 98%, and respiratory rate 26. HEENT: Unremarkable except for being intubated. NECK: No JVD. LUNGS: Coarse breath sounds. CARDIAC: S1 and S2. Regular. ABDOMEN: Soft. EXTREMITIES: No edema. LABORATORY DATA: ABG; pH of 7.43, pCO2 of 44, PO2 of 59 bilevel rate 26, high pressure 20, low pressure 12, FiO2 of 50%. Sodium 140, potassium 4.1, chloride 101, CO2 of 29, BUN 61, creatinine 1.4, and glucose 164. White blood count 17.1, hematocrit 34.6, and platelet count 272. Chest x-ray, no significant change. ASSESSMENT: 1. COVID-19 pneumonia. 2. Acute respiratory failure, requiring mechanical ventilation. PLAN: 1. Continue supportive care with antibiotics, steroids, mechanical ventilation, and insulin drip. 2. Tube feeds started yesterday. 3. We will update family. Job ID: [id number]
[2020-02-03 09:30] LABS: %Neutrophils 91.2 % (42.0-75.0); Hemoglobin 11.2 g/dL (14.0-18.0); Mean Corpuscular HGB CONC 32.2 g/dL (32.0-36.0); Mean Platelet Volume 8.1 fL (7.4-10.4); Platelet Count 272 thou/uL (130-400); RBC Distribution Width 13.3 % (11.5-14.5); Red Blood Cell (RBC) Count 3.85 mill/uL (4.70-6.10); White Blood Cell (WBC) Count 17.1 thou/uL (4.8-10.8)
[2020-02-03 09:31] LABS: #Basophils 0.1 thou/uL (0.0-0.2); #Monocytes 0.7 thou/uL (0.11-0.59); #Neutrophils 15.6 thou/uL (1.40-6.50); %Basophils 0.3 % (0.0-1.0); %Eosinophils 0.1 % (0.0-10.0); %Lymphocytes 4.1 % (21.0-51.0); %Monocytes 4.2 % (0.0-10.0); MDiff Complete? YES
[2020-02-03 09:33] LABS: #Lymphocytes 0.7 thou/uL (1.20-3.40)
[2020-02-03 09:49] LABS: Actual Bicarbonate (HCO3a) 29.3 mEq/L (22-28); Base Excess (BEa) 4.5 mEq/L (-2.0 to +3.0); CO2 Tension 44.8 mmHg (35.0-45.0); Calcium, Ionized (arterial) 1.09 mmol/L (1.12-1.30); Carboxyhemoglobin (COHb) 0.3 gm% (0.0-3.0); Hemoglobin (Hb) 11.9 g/dL (14.0-18.0); Potassium - ABG Lab 3.93 mmol/L (3.70-5.30); pH, Arterial 7.43 (7.35-7.45)
[2020-02-03 09:52] LABS: O2 Tension (PaO2), arterial 59.8 mmHg (> 70.0); Puncture Site RRA
--- NOTE | 2020-02-03 10:23 | PDOC.HOSPP ---
- Subjective Encounter Date: 02/03/20 Encounter Time: 10:21 Subjective: Mr. Duque was seen at a distance for respiratory failure due to COVID pneumonia. He remains intubated. - Objective Vital Signs & Weight: Vital Signs (12 hours) Temp Pulse Resp BP Pulse Ox 02/03/20 08:00 98.5 F 26 H 97 02/03/20 06:59 89 127/72 02/03/20 02:00 26 H 02/03/20 00:00 98.0 F 26 H Weight Admit Weight 188 lb Weight 188 lb 4.396 oz Most Recent Monitor Data Heart Rate from ECG 79 NIBP 122/66 NIBP BP-Mean 84 Respiration from ECG 8 SpO2 96 I&O: 02/02/20 02/03/20 02/04/20 06:59 06:59 06:59 Intake Total 2478.4 1680 220 Output Total 750 1415 240 Balance 1728.4 265 -20 Result Diagrams: 02/03/20 04:00 02/03/20 03:30 Additional Labs: Accuchecks 02/03/20 02/03/20 02/03/20 08:25 05:47 04:02 POC Glucose 176 H 175 H 169 H 02/03/20 02/02/20 02/02/20 01:45 23:57 21:44 POC Glucose 186 H 157 H 149 H 02/02/20 02/02/20 02/02/20 19:38 18:16 16:56 POC Glucose 139 H 131 H 121 H 02/02/20 02/02/20 02/02/20 14:52 12:39 10:13 POC Glucose 106 118 H 104 01/31/20 01/31/20 17:29 15:54 POC Glucose Greater than 550 H* Greater than 550 H* Hospitalist ROS - Medication Medications: Active Medications Generic Name Dose Route Start Last Admin Trade Name Freq PRN Reason Stop Dose Admin Enoxaparin Sodium 40 mg 02/01/20 21:00 02/02/20 21:30 Lovenox SC 40 mg BID DHAVAL Administration Famotidine 20 mg 02/02/20 09:00 02/02/20 09:47 Pepcid SLOW IVP 20 mg DAILY DHAVAL Administration Hydrocortisone Sodium Succinate 100 mg 01/31/20 18:00 02/02/20 23:42 Solu-Cortef IVP 100 mg Q6HR DHAVAL Administration Insulin Human Regular 100 101 mls @ 0 mls/hr 01/31/20 13:00 02/02/20 09:47 units/ Sodium Chloride IVPB 101 mls INF DHAVAL Administration Protocol Titrate Norepinephrine Bitartrate 250 mls @ 0 mls/hr 01/31/20 13:00 02/03/20 01:34 Levophed IVPB 250 mls INF DHAVAL Administration Protocol Titrate Fentanyl Citrate 2,000 mcg/ 100 mls @ 0 mls/hr 01/31/20 13:09 02/02/20 07:19 Sodium Chloride IV 03/01/20 13:09 100 mls INF DHAVAL Administration Protocol Per Protocol Dextrose/Sodium Chloride 1,000 mls @ 75 mls/hr 02/01/20 09:15 02/03/20 01:08 D5 1/2 Ns IV 1,000 mls .[id number] DHAVAL Administration Insulin Glargine 10 units/ 0.1 mls @ 0 mls/hr 02/02/20 09:00 02/02/20 09:51 Miscellaneous Medication SC 0.1 mls QAM DHAVAL Administration Lorazepam 2 mg 01/31/20 13:09 02/02/20 23:43 Ativan SLOW IVP 03/01/20 13:09 2 mg Q1H PRN Administration Breakthrough agitation Nitroglycerin 0.5 inch 01/31/20 14:00 02/02/20 22:08 Nitro-Bid 2% Ointment TOP Not Given Q8HR DHAVAL Nystatin 1 gm 01/31/20 21:00 02/02/20 21:30 Mycostatin Cream TOP 1 gm BID DHAVAL Administration Propofol 1,000 mg 01/31/20 13:09 02/02/20 23:42 Diprivan IV 03/01/20 13:09 1,000 mg INF PRN Administration TO ACHIEVE GOAL RASS Protocol Sodium Chloride 10 ml 01/31/20 21:00 02/02/20 22:08 Flush - Normal Saline IVF 10 ml Q12HR DHAVAL Administration Vecuronium [place] 10 mg 01/31/20 12:53 02/02/20 23:42 Norcuron IVP 10 mg Q30MIN PRN Administration Agitation Hosp A/P (1) Acute respiratory failure due to COVID-19 Code(s): U07.1 - COVID-19; J96.00 - ACUTE RESPIRATORY FAILURE, UNSP W HYPOXIA OR HYPERCAPNIA Status: Acute (2) Acute respiratory failure with hypoxemia Code(s): J96.01 - ACUTE RESPIRATORY FAILURE WITH HYPOXIA Status: Acute (3) Hypertension Code(s): I10 - ESSENTIAL (PRIMARY) HYPERTENSION Status: Chronic (4) Diabetes mellitus type 2 in nonobese Code(s): E11.9 - TYPE 2 DIABETES MELLITUS WITHOUT COMPLICATIONS Status: Chronic (5) Septic shock Code(s): A41.9 - SEPSIS, UNSPECIFIED ORGANISM; R65.21 - SEVERE SEPSIS WITH SEPTIC SHOCK Status: Acute (6) Acute kidney injury Code(s): N17.9 - ACUTE KIDNEY FAILURE, UNSPECIFIED Status: Acute - Plan * Acute respiratory failure due to COVID pneumonia- he is intubated. * Continue Azithromycin and Rocephin, and Stress dose steroids * DM- blood glucose is stable * Continue anticoagulation * Septic Shock * Acute kidney injury- likely from ATN from sepsis- better today * Prognosis is guarded
[2020-02-03] MEDS: Hydrocortisone Sod Succ/PF 100 mg/2 ml Vial IVP SCH ×4 (12:15→23:54)
[2020-02-03] MEDS ORDERED: Sodium Bicarbonate Tab 325 MG TAB PER TUBE PRN (12:45)
[2020-02-03] MEDS ORDERED: Pancrelipase DR 12,000 1 CAP FS PRN (12:45)
[2020-02-03] MEDS: Nitroglycerin 2% Ointment 1 INCH/1 GM Packet TOP SCH ×3 (13:46→21:03)
[2020-02-03] MEDS: HumaLOG 300 UNITS/3 ML VIAL SC PRN ×2 (15:55→21:23)
[2020-02-03] MEDS: fentaNYL Citrate/PF 2,000 MCG in Sodium Chloride 0.9% 60 ML IV SCH (23:59)
[2020-02-04] MEDS: HumaLOG 300 UNITS/3 ML VIAL SC PRN ×7 (00:27→23:34)
[2020-02-04] MEDS: Propofol 1,000 MG/100 ML VIAL IV PRN ×4 (03:02→23:20)
[2020-02-04] MEDS: Dextrose 5 %-0.45 % NaCl 1,000 ML IV SCH (03:02)
[2020-02-04 03:43] LABS: #Lymphocytes 0.6 thou/uL (1.20-3.40); #Monocytes 0.8 thou/uL (0.11-0.59); #Neutrophils 11.8 thou/uL (1.40-6.50); %Basophils 0.1 % (0.0-1.0); %Eosinophils 0.1 % (0.0-10.0); %Lymphocytes 4.6 % (21.0-51.0); %Monocytes 5.6 % (0.0-10.0); %Neutrophils 89.6 % (42.0-75.0); Hemoglobin 10.7 g/dL (14.0-18.0); Mean Corpuscular HGB CONC 32.5 g/dL (32.0-36.0); Mean Corpuscular Hemoglobin 29.2 pg (27.0-31.0); Mean Corpuscular Volume 89.8 fL (78.0-98.0); Platelet Count 254 thou/uL (130-400); RBC Distribution Width 13.3 % (11.5-14.5); Red Blood Cell (RBC) Count 3.67 mill/uL (4.70-6.10); White Blood Cell (WBC) Count 13.2 thou/uL (4.8-10.8)
[2020-02-04 04:01] LABS: Anion Gap 13 mmol/L (10-20); BUN (Urea Nitrogen) 49 mg/dL (8.4-25.7); Calc. Creatinine Clearance 81 mL/min (70-130); Calcium 7.9 mg/dL (7.8-10.44); Carbon Dioxide 30 mmol/L (23-31); Chloride 102 mmol/L (98-107); Estimated GFR-MDRD 73; Glucose 305 mg/dL (83-110); Potassium 4.2 mmol/L (3.5-5.1); Sodium 141 mmol/L (136-145)
[2020-02-04] MEDS: Nitroglycerin 2% Ointment 1 INCH/1 GM Packet TOP SCH ×3 (05:52→20:31)
[2020-02-04] MEDS: Hydrocortisone Sod Succ/PF 100 mg/2 ml Vial IVP SCH ×4 (05:52→23:20)
--- NOTE | 2020-02-04 07:48 | RAD ---
EXAM: CHEST ONE VIEW HISTORY: Pneumonia. Follow-up evaluation. COMPARISON: 02/03/2020 FINDINGS: Endotracheal tube, nasogastric tube, and left-sided vascular catheter remain in place. Cardiac silhou ette is stable in size. Again noted are emphysematous changes of the lungs bilaterally greater in the right upper and midlung zone. Increased interstitial and patchy parenchymal densities are again s een at each lung base. The opacities are overall similar to the prior exam. No other interval change. IMPRESSION: Stable chest with bibasilar interstitial and patchy parenchymal opacities which again could be relate d to bilateral pneumonia. Follow-up to complete resolution is recommended.
[2020-02-04 07:55] LABS: Actual Bicarbonate (HCO3a) 29.4 mEq/L (22-28); Base Excess (BEa) 4.1 mEq/L (-2.0 to +3.0); CO2 Tension 46.3 mmHg (35.0-45.0); Calcium, Ionized (arterial) 1.14 mmol/L (1.12-1.30); O2 Tension (PaO2), arterial 65.6 mmHg (> 70.0); Potassium - ABG Lab 4.16 mmol/L (3.70-5.30); pH, Arterial 7.42 (7.35-7.45)
[2020-02-04 07:58] LABS: Puncture Site RRA
[2020-02-04 07:59] LABS: ALV-art Gradient 233.025 mmHg (0-20)
[2020-02-04] MEDS: cefTRIAXone\\ROCEPHIN 1 GM in Sodium Chloride 0.9% 100 ML IVPB SCH (08:19)
[2020-02-04] MEDS: Famotidine 20 MG TAB PER TUBE SCH ×2 (08:19→20:00)
[2020-02-04] MEDS: Azithromycin 500 MG in Sodium Chloride 0.9% 250 ML 250 ML IVPB SCH (08:20)
[2020-02-04] MEDS: Enoxaparin Sodium 40 MG/0.4 ML SYRINGE SC SCH ×2 (08:20→20:00)
[2020-02-04] MEDS: Insulin Glargine 10 UNITS in Pre-Filled Syringe 1 EACH SC SCH (08:24)
--- NOTE | 2020-02-04 09:14 | PRG ---
DATE OF SERVICE: 02/04/2020 TIME SPENT: 35 minutes of critical care time. SUBJECTIVE: The patient remains intubated on mechanical ventilation for COVID-19 pneumonia. Overall, he has done fairly well. OBJECTIVE: VITAL SIGNS: Temperature 97.5, pulse 81, blood pressure 129/70, O2 saturation 100%. 24-hour intake 3554, output 5. HEENT: Unremarkable. NECK: No adenopathy or JVD. LUNGS: Clear anteriorly. CARDIAC: S1, S2. Regular. ABDOMEN: Soft. EXTREMITIES: No edema. LABORATORY DATA: Sodium 141, potassium 4.2, chloride 102, CO2 of 30, BUN 49, creatinine 1.0, glucose 305. PH 7.42, pCO2 of 46, pO2 of 65, on bilevel 20/12 with FiO2 of 50%. White blood cell count 13.2, hematocrit 33, and platelet count 254. His x-ray actually looks somewhat better. ASSESSMENT: 1. COVID-19 pneumonia. 2. Acute respiratory failure, requiring mechanical ventilation. 3. Improved renal insufficiency. 4. Diabetes mellitus. PLAN: 1. I am going to change him over to NPH insulin from Lantus, so we can give twice daily dosing and give perhaps a higher dose if his blood sugars under better control. 2. Continue supportive care with steroids, antibiotics. 3. He actually does fairly well on pressure support ventilation, so I am going to try on that for a while today. We need to try to limit his sedation as much as possible. I am going to discontinue any potential for him getting paralytics. It looks like he has been weaned off Levophed drip. 4. Discontinue glucose from IV fluids since he is now receiving tube feeds. Job ID: [id number]
[2020-02-04] MEDS: Sodium Chloride 0.45% 1,000 ML IV SCH (09:27)
[2020-02-04] MEDS: Nystatin Cream 15 GM TUBE TOP SCH ×2 (09:28→20:01)
[2020-02-04] MEDS: NPH, Human Insulin Isophane 300 UNIT/3 ML VIAL SC SCH ×2 (12:09→20:01)
--- NOTE | 2020-02-04 17:37 | PDOC.PALPN ---
Palliative Progress Note - Subjective Intubated, weaned from levophed drip. Nurse reports difficulty with vacation from sedation while on mechanical ventilation. - Objective Vital Signs: Vital Signs - Most Recent Temp Pulse Resp BP Pulse Ox 97.3 F L 84 29 H 133/68 97 02/04/20 16:00 02/04/20 14:13 02/04/20 16:00 02/04/20 14:13 02/04/20 08:00 - Physical Exam Constitutional: encephalitic, ill appearing HEENT: moist MMs Respiratory: no wheezing Deviation from normal: intubated, mechanical ventilation Cardiovascular: RRR Gastrointestinal: soft, positive bowel sounds, incontinent Genitourinary: jefferson catheter Musculoskeletal: no cyanosis, no clubbing Skin: cap refill <2 seconds, bruising Deviation from normal: encephalopathic - Assessment (1) Acute respiratory failure due to COVID-19 Code(s): U07.1 - COVID-19; J96.00 - ACUTE RESPIRATORY FAILURE, UNSP W HYPOXIA OR HYPERCAPNIA Current Visit: Yes Status: Acute (2) Acute respiratory failure with hypoxemia Code(s): J96.01 - ACUTE RESPIRATORY FAILURE WITH HYPOXIA Current Visit: Yes Status: Acute (3) Diabetes mellitus type 2 in nonobese Code(s): E11.9 - TYPE 2 DIABETES MELLITUS WITHOUT COMPLICATIONS Current Visit: Yes Status: Chronic (4) Hypertension Code(s): I10 - ESSENTIAL (PRIMARY) HYPERTENSION Current Visit: Yes Status: Chronic (5) Palliative care encounter Code(s): Z51.5 - ENCOUNTER FOR PALLIATIVE CARE Current Visit: Yes Status: Acute - Plan Plan: Family support. Attempted to contact family. Will establish supportive role. Palliative Care will attempt to have a family meeting, life review, and begin general goal of care conversation. Will further inquire if Directive to Physician completed. [35] minutes spent on this encounter with >50% of the time in counseling and coordination of care. - ROS Non Response: due to endotracheal tube, due to mental status
--- NOTE | 2020-02-04 18:08 | PDOC.HOSPP ---
- Subjective Encounter Date: 02/04/20 Encounter Time: 18:06 (Pt se) Subjective: Patient seen for follow-up regarding acute respiratory failure. Patient is intubated. - Objective Vital Signs & Weight: Vital Signs (12 hours) Temp Pulse Resp BP Pulse Ox 02/04/20 16:00 97.3 F L 29 H 02/04/20 14:13 84 133/68 02/04/20 14:00 28 H 02/04/20 12:00 97.8 F 27 H 02/04/20 10:41 81 117/68 02/04/20 10:00 33 H 02/04/20 08:00 98.7 F 26 H 97 Weight Admit Weight 188 lb Weight 190 lb 7.67 oz Most Recent Monitor Data Heart Rate from ECG 84 NIBP 113/63 NIBP BP-Mean 79 Respiration from ECG 11 SpO2 100 I&O: 02/03/20 02/04/20 02/05/20 06:59 06:59 06:59 Intake Total 1680 3554.3 160 Output Total 1415 2055 775 Balance 265 1499.3 -615 Result Diagrams: 02/04/20 03:10 02/04/20 03:10 Additional Labs: Accuchecks 02/04/20 02/04/20 02/04/20 15:56 12:45 08:40 POC Glucose 206 H 203 H 235 H 02/04/20 02/04/20 02/03/20 03:17 00:11 21:15 POC Glucose 277 H 283 H 302 H I reviewed patient's labs and MAR EKG Reviewed by me: Yes (Telemetry: NSR) Hospitalist ROS - Review of Systems ROS unobtainable: due to endotracheal tube - Medication Medications: Active Medications Generic Name Dose Route Start Last Admin Trade Name Freq PRN Reason Stop Dose Admin Enoxaparin Sodium 40 mg 02/01/20 21:00 02/04/20 08:20 Lovenox SC 40 mg BID DHAVAL Administration Famotidine 20 mg 02/04/20 09:00 02/04/20 08:19 Famotidine 20 Mg Tab PER TUBE 20 mg BID DHAVAL Administration Hydrocortisone Sodium Succinate 100 mg 01/31/20 18:00 02/04/20 17:45 Solu-Cortef IVP 100 mg Q6HR DHAVAL Administration Norepinephrine Bitartrate 250 mls @ 0 mls/hr 01/31/20 13:00 02/03/20 01:34 Levophed IVPB 250 mls INF DHAVAL Administration Protocol Titrate Fentanyl Citrate 2,000 mcg/ 100 mls @ 0 mls/hr 01/31/20 13:09 02/03/20 23:59 Sodium Chloride IV 03/01/20 13:09 100 mls INF DHAVAL Administration Protocol Per Protocol Azithromycin 500 mg/ Sodium 250 mls @ 250 mls/hr 02/03/20 09:00 02/04/20 08:20 Chloride IVPB 250 mls 0900 DHAVAL Administration Ceftriaxone Sodium 1 gm/ 100 mls @ 200 mls/hr 02/03/20 09:00 02/04/20 08:19 Sodium Chloride IVPB 100 mls 0900 DHAVAL Administration Sodium Chloride 1,000 mls @ 50 mls/hr 02/04/20 09:00 02/04/20 09:27 1/2 Normal Saline IV 1,000 mls .Q20H DHAVAL Administration Insulin Human Lispro 0 units 01/31/20 12:53 02/04/20 16:07 Humalog SC 4 unit .MODERATE SLIDING SC PRN Administration Moderate Correctional Scale Insulin Human NPH 30 unit 02/04/20 09:00 02/04/20 12:09 Nph, Human Insulin Isophane 300 Unit/3 Ml Vial SC Not Given BID DHAVAL Lorazepam 2 mg 01/31/20 13:09 02/02/20 23:43 Ativan SLOW IVP 03/01/20 13:09 2 mg Q1H PRN Administration Breakthrough agitation Nitroglycerin 0.5 inch 01/31/20 14:00 02/04/20 14:53 Nitro-Bid 2% Ointment TOP Not Given Q8HR DHAVAL Nystatin 1 gm 01/31/20 21:00 02/04/20 09:28 Mycostatin Cream TOP 1 gm BID DHAVAL Administration Propofol 1,000 mg 01/31/20 13:09 02/04/20 14:53 Diprivan IV 03/01/20 13:09 1,000 mg INF PRN Administration TO ACHIEVE GOAL RASS Protocol Sodium Chloride 10 ml 01/31/20 21:00 02/04/20 08:21 Flush - Normal Saline IVF 10 ml Q12HR DHAVAL Administration - Exam General - other findings: Intubated, mechanically ventilated ENT: normocephalic atraumatic Neck: no lymphadenopathy Heart: RRR Respiratory: CTAB Gastrointestinal: soft Extremities: no cyanosis Neurological - other findings: Unable to assess Psychiatric - other findings: Unable to assess Hosp A/P - Plan (1) Acute respiratory failure due to COVID-19 Code(s): U07.1 - COVID-19; J96.00 - ACUTE RESPIRATORY FAILURE, UNSP W HYPOXIA OR HYPERCAPNIA Status: Acute (2) Acute respiratory failure with hypoxemia Code(s): J96.01 - ACUTE RESPIRATORY FAILURE WITH HYPOXIA Status: Acute (3) Hypertension Code(s): I10 - ESSENTIAL (PRIMARY) HYPERTENSION Status: Chronic (4) Diabetes mellitus type 2 in nonobese Code(s): E11.9 - TYPE 2 DIABETES MELLITUS WITHOUT COMPLICATIONS Status: Chronic (5) Septic shock Code(s): A41.9 - SEPSIS, UNSPECIFIED ORGANISM; R65.21 - SEVERE SEPSIS WITH SEPTIC SHOCK Status: Acute (6) Acute kidney injury Code(s): N17.9 - ACUTE KIDNEY FAILURE, UNSPECIFIED Status: Acute - Plan * Patient intubated and mechanically ventilated, currently in CCU. * Patient is on azithromycin and Rocephin, continue stress dose steroids * DM-patient switched to NPH insulin today, continue to monitor Accu-Cheks. * Continue Lovenox 40 mg twice daily * Acute kidney injury-resolved * Prognosis is guarded * Patient received convalescent plasma on January 31, 2020.
[2020-02-04] MEDS: fentaNYL Citrate/PF 2,000 MCG in Sodium Chloride 0.9% 60 ML IV SCH (18:53)
[2020-02-04] MEDS: Lorazepam 2 MG/ML VIAL SLOW IVP PRN (20:00)
[2020-02-05] MEDS: Sodium Chloride 0.45% 1,000 ML IV SCH ×2 (04:07→23:49)
[2020-02-05] MEDS: Propofol 1,000 MG/100 ML VIAL IV PRN ×5 (04:24→22:01)
[2020-02-05] MEDS: HumaLOG 300 UNITS/3 ML VIAL SC PRN ×5 (04:37→20:15)
[2020-02-05 04:54] LABS: #Basophils 0.1 thou/uL (0.0-0.2); #Lymphocytes 0.6 thou/uL (1.20-3.40); #Monocytes 0.4 thou/uL (0.11-0.59); #Neutrophils 10.7 thou/uL (1.40-6.50); %Basophils 0.6 % (0.0-1.0); %Eosinophils 0.2 % (0.0-10.0); %Lymphocytes 5.2 % (21.0-51.0); %Monocytes 3.1 % (0.0-10.0); Hemoglobin 10.4 g/dL (14.0-18.0); Mean Corpuscular HGB CONC 32.7 g/dL (32.0-36.0); Mean Corpuscular Volume 91.7 fL (78.0-98.0); Mean Platelet Volume 7.8 fL (7.4-10.4); Platelet Count 260 thou/uL (130-400); RBC Distribution Width 13.3 % (11.5-14.5); Red Blood Cell (RBC) Count 3.47 mill/uL (4.70-6.10); White Blood Cell (WBC) Count 11.7 thou/uL (4.8-10.8)
[2020-02-05 05:22] LABS: Anion Gap 13 mmol/L (10-20); BUN (Urea Nitrogen) 45 mg/dL (8.4-25.7); Calc. Creatinine Clearance 100 mL/min (70-130); Calcium 8.1 mg/dL (7.8-10.44); Carbon Dioxide 30 mmol/L (23-31); Chloride 103 mmol/L (98-107); Estimated GFR-MDRD Greater than 90; Glucose 256 mg/dL (83-110); Potassium 4.1 mmol/L (3.5-5.1); Sodium 142 mmol/L (136-145)
[2020-02-05] MEDS: Hydrocortisone Sod Succ/PF 100 mg/2 ml Vial IVP SCH ×4 (05:39→23:45)
[2020-02-05] MEDS: Nitroglycerin 2% Ointment 1 INCH/1 GM Packet TOP SCH ×3 (05:55→23:46)
[2020-02-05] MEDS: Azithromycin 500 MG in Sodium Chloride 0.9% 250 ML 250 ML IVPB SCH (07:27)
[2020-02-05 08:09] LABS: Actual Bicarbonate (HCO3a) 28.4 mEq/L (22-28); Base Excess (BEa) 4.3 mEq/L (-2.0 to +3.0); CO2 Tension 40.5 mmHg (35.0-45.0); Calcium, Ionized (arterial) 1.15 mmol/L (1.12-1.30); Carboxyhemoglobin (COHb) 0.7 gm% (0.0-3.0); Hemoglobin (Hb) 10.9 g/dL (14.0-18.0); Potassium - ABG Lab 4.02 mmol/L (3.70-5.30); pH, Arterial 7.46 (7.35-7.45)
[2020-02-05 08:40] LABS: O2 Tension (PaO2), arterial 55.7 mmHg (> 70.0); Puncture Site RR
[2020-02-05 08:41] LABS: ALV-art Gradient 321.475 mmHg (0-20)
[2020-02-05] MEDS: cefTRIAXone\\ROCEPHIN 1 GM in Sodium Chloride 0.9% 100 ML IVPB SCH (08:41)
[2020-02-05] MEDS: Famotidine 20 MG TAB PER TUBE SCH ×2 (08:42→19:53)
[2020-02-05] MEDS: Enoxaparin Sodium 40 MG/0.4 ML SYRINGE SC SCH ×2 (08:42→19:53)
[2020-02-05] MEDS: Nystatin Cream 15 GM TUBE TOP SCH ×2 (08:42→19:51)
[2020-02-05] MEDS: NPH, Human Insulin Isophane 300 UNIT/3 ML VIAL SC SCH ×2 (09:18→19:52)
--- NOTE | 2020-02-05 09:23 | RAD ---
PORTABLE CHEST: INDICATION: Pneumonia followup. COMPARISON: 02/04/2020. FINDINGS: Confluent infiltrates and atelectasis in both lower lungs. The infiltrates are more pronounced today , especially on the right. Upper lungs are clear. ET tube and NG Tube and central line are unchange d. IMPRESSION: Increased density of the bibasilar infiltrates, especially on the right. POS: OFF
--- NOTE | 2020-02-05 10:07 | PRG ---
DATE OF SERVICE: 02/05/2020 TIME SPENT: 35 minutes of critical care time. SUBJECTIVE: The patient remains intubated on mechanical ventilation. He failed attempts to turn down support yesterday. OBJECTIVE: VITAL SIGNS: On exam, temperature is 97.8, pulse 87, and blood pressure 139/72. 24-hour intake 2819, output 1850. HEENT: Unremarkable. NECK: No adenopathy or JVD. LUNGS: Coarse breath sounds. CARDIAC: S1, S2. Regular. ABDOMEN: Soft. EXTREMITIES: No edema. IMAGING DATA: Chest x-ray shows lower lobe infiltrates bilaterally. LABORATORY DATA: Sodium 142, potassium 4.1, chloride 103, CO2 of 30, BUN 45, creatinine 0.8, and glucose 256. White blood cell count 13.7, hematocrit 31.9, and platelet count 260. ASSESSMENT: 1. COVID-19 pneumonia. 2. Acute respiratory failure requiring mechanical ventilation. PLAN: The patient is still requiring significant ventilatory support with pressure control assistance. He is not weanable at this time. We will continue supportive care with the steroids, antibiotics, and anticoagulation. I spoke with his and his son over the phone today. The son apparently has connections with the MANAGER [employer] at [facility] in [place]. They are interested in getting him started on one of the new clinical trials. I told him that may require transfer down to [facility], but we will be happy to facilitate anything that they want. Job ID: [id number]
[2020-02-05] MEDS: Lorazepam 2 MG/ML VIAL SLOW IVP PRN ×3 (11:05→16:11)
[2020-02-05] MEDS: fentaNYL Citrate/PF 2,000 MCG in Sodium Chloride 0.9% 60 ML IV SCH (14:29)
--- NOTE | 2020-02-05 18:21 | PDOC.HOSPP ---
- Subjective Encounter Date: 02/05/20 Encounter Time: 18:20 Subjective: Patient seen for follow-up regarding COVID-19 pneumonia. Entered, could not complete review of systems. - Objective Vital Signs & Weight: Vital Signs (12 hours) Temp Pulse Resp BP Pulse Ox 02/05/20 17:54 28 H 02/05/20 16:00 100.4 F H 02/05/20 15:55 28 H 02/05/20 15:05 108 H 159/77 H 02/05/20 13:55 28 H 02/05/20 11:48 31 H 02/05/20 11:42 97.9 F 02/05/20 10:34 88 136/69 02/05/20 09:56 27 H 02/05/20 08:00 97.8 F 28 H 98 02/05/20 07:43 85 127/69 Weight Admit Weight 188 lb Weight 194 lb 3.636 oz Most Recent Monitor Data Heart Rate from ECG 104 NIBP 133/67 NIBP BP-Mean 89 Respiration from ECG 27 SpO2 96 I&O: 02/04/20 02/05/20 02/06/20 06:59 06:59 06:59 Intake Total 3554.3 2819 1798 Output Total 2055 1850 950 Balance 1499.3 969 848 Result Diagrams: 02/05/20 04:15 02/05/20 04:15 Additional Labs: Accuchecks 02/05/20 02/05/20 02/05/20 16:20 11:17 07:41 POC Glucose 220 H 232 H 251 H 02/05/20 02/04/20 02/04/20 04:21 23:31 20:14 POC Glucose 237 H 211 H 228 H I reviewed patient's labs and MAR EKG Reviewed by me: Yes (Telemetry-NSR) Hospitalist ROS - Review of Systems ROS unobtainable: due to endotracheal tube - Medication Medications: Active Medications Generic Name Dose Route Start Last Admin Trade Name Freq PRN Reason Stop Dose Admin Enoxaparin Sodium 40 mg 02/01/20 21:00 02/05/20 08:42 Lovenox SC 40 mg BID DHAVAL Administration Famotidine 20 mg 02/04/20 09:00 02/05/20 08:42 Famotidine 20 Mg Tab PER TUBE 20 mg BID DHAVAL Administration Hydrocortisone Sodium Succinate 50 mg 02/05/20 12:00 02/05/20 17:35 Hydrocortisone Sod Succ/Pf 100 Mg/2 Ml Vial IVP 50 mg Q6HR DHAVAL Administration Norepinephrine Bitartrate 250 mls @ 0 mls/hr 01/31/20 13:00 02/03/20 01:34 Levophed IVPB 250 mls INF DHAVAL Administration Protocol Titrate Fentanyl Citrate 2,000 mcg/ 100 mls @ 0 mls/hr 01/31/20 13:09 02/05/20 14:29 Sodium Chloride IV 03/01/20 13:09 100 mls INF DHAVAL Administration Protocol Per Protocol Ceftriaxone Sodium 1 gm/ 100 mls @ 200 mls/hr 02/03/20 09:00 02/05/20 08:41 Sodium Chloride IVPB 100 mls 0900 DHAVAL Administration Sodium Chloride 1,000 mls @ 50 mls/hr 02/04/20 09:00 02/05/20 04:07 1/2 Normal Saline IV 1,000 mls .Q20H DHAVAL Administration Insulin Human Lispro 0 units 01/31/20 12:53 02/05/20 16:41 Humalog SC 4 unit .MODERATE SLIDING SC PRN Administration Moderate Correctional Scale Insulin Human NPH 30 unit 02/04/20 09:00 02/05/20 09:18 Nph, Human Insulin Isophane 300 Unit/3 Ml Vial SC 30 unit BID DHAVAL Administration Lorazepam 2 mg 01/31/20 13:09 02/05/20 16:11 Ativan SLOW IVP 03/01/20 13:09 2 mg Q1H PRN Administration Breakthrough agitation Nitroglycerin 0.5 inch 01/31/20 14:00 02/05/20 13:53 Nitro-Bid 2% Ointment TOP Not Given Q8HR DHAVAL Nystatin 1 gm 01/31/20 21:00 02/05/20 08:42 Mycostatin Cream TOP 1 gm BID DHAVAL Administration Propofol 1,000 mg 01/31/20 13:09 02/05/20 14:29 Diprivan IV 03/01/20 13:09 1,000 mg INF PRN Administration TO ACHIEVE GOAL RASS Protocol Sodium Chloride 10 ml 01/31/20 21:00 02/05/20 07:28 Flush - Normal Saline IVF 10 ml Q12HR DHAVAL Administration - Exam General - other findings: Intubated ENT: normocephalic atraumatic ENT - other findings: ETT, OGT Heart: RRR Respiratory: CTAB Gastrointestinal: soft, non-tender Psychiatric - other findings: Unable to assess Hosp A/P - Plan (1) Acute respiratory failure due to COVID-19 Code(s): U07.1 - COVID-19; J96.00 - ACUTE RESPIRATORY FAILURE, UNSP W HYPOXIA OR HYPERCAPNIA Status: Acute (2) Acute respiratory failure with hypoxemia Code(s): J96.01 - ACUTE RESPIRATORY FAILURE WITH HYPOXIA Status: Acute (3) Hypertension Code(s): I10 - ESSENTIAL (PRIMARY) HYPERTENSION Status: Chronic (4) Diabetes mellitus type 2 in nonobese Code(s): E11.9 - TYPE 2 DIABETES MELLITUS WITHOUT COMPLICATIONS Status: Chronic (5) Septic shock Code(s): A41.9 - SEPSIS, UNSPECIFIED ORGANISM; R65.21 - SEVERE SEPSIS WITH SEPTIC SHOCK Status: Resolved (6) Acute kidney injury Code(s): N17.9 - ACUTE KIDNEY FAILURE, UNSPECIFIED Status: Resolved - Plan * * * Patient had cold symptoms since January 20. He was intubated in the field for oxygen saturation in the 30s. He was in prone position for mechanical v entilation. He received convalescent plasma on January 30. He continues to be intubated and mechanically ventilated in the CCU. He is currently on azithromycin, ceftriaxone and stress dose steroids. * DM-patient switched to NPH insulin today, continue to monitor Accu-Cheks. * Patient is on Lovenox 40 mg twice daily * Acute kidney injury-resolved * Prognosis is guarded
[2020-02-06] MEDS: HumaLOG 300 UNITS/3 ML VIAL SC PRN ×3 (00:15→09:15)
[2020-02-06] MEDS: Propofol 1,000 MG/100 ML VIAL IV PRN ×4 (03:02→21:56)
[2020-02-06 03:58] LABS: Anion Gap 13 mmol/L (10-20); BUN (Urea Nitrogen) 43 mg/dL (8.4-25.7); Calc. Creatinine Clearance 104 mL/min (70-130); Calcium 8.3 mg/dL (7.8-10.44); Carbon Dioxide 30 mmol/L (23-31); Chloride 104 mmol/L (98-107); Estimated GFR-MDRD Greater than 90; Glucose 202 mg/dL (83-110); Potassium 4.4 mmol/L (3.5-5.1); Sodium 143 mmol/L (136-145)
[2020-02-06 05:13] LABS: Band 10 % (5-11); Hemoglobin 10.7 g/dL (14.0-18.0); Lymphocytes 9 % (21-51); MDiff Complete? YES; Mean Corpuscular HGB CONC 32.1 g/dL (32.0-36.0); Mean Corpuscular Hemoglobin 29.6 pg (27.0-31.0); Mean Corpuscular Volume 92.2 fL (78.0-98.0); Monocytes 1 % (0-10); Neutrophil 80 % (42-75); Platelet Count 279 thou/uL (130-400); RBC Distribution Width 13.3 % (11.5-14.5); Red Blood Cell (RBC) Count 3.63 mill/uL (4.70-6.10); White Blood Cell (WBC) Count 13.6 thou/uL (4.8-10.8)
[2020-02-06] MEDS: Hydrocortisone Sod Succ/PF 100 mg/2 ml Vial IVP SCH ×4 (06:23→23:59)
[2020-02-06] MEDS: Nitroglycerin 2% Ointment 1 INCH/1 GM Packet TOP SCH ×3 (06:24→21:58)
[2020-02-06] MEDS: fentaNYL Citrate/PF 2,000 MCG in Sodium Chloride 0.9% 60 ML IV SCH ×2 (07:02→22:38)
[2020-02-06 07:34] LABS: Actual Bicarbonate (HCO3a) 31.6 mEq/L (22-28); Base Excess (BEa) 6.7 mEq/L (-2.0 to +3.0); CO2 Tension 46.3 mmHg (35.0-45.0); Calcium, Ionized (arterial) 1.14 mmol/L (1.12-1.30); Carboxyhemoglobin (COHb) 1.4 gm% (0.0-3.0); Potassium - ABG Lab 4.19 mmol/L (3.70-5.30); pH, Arterial 7.45 (7.35-7.45)
[2020-02-06 07:37] LABS: O2 Tension (PaO2), arterial 51.1 mmHg (> 70.0); Puncture Site RR
[2020-02-06 07:38] LABS: ALV-art Gradient 318.825 mmHg (0-20)
[2020-02-06] MEDS: cefTRIAXone\\ROCEPHIN 1 GM in Sodium Chloride 0.9% 100 ML IVPB SCH (08:21)
[2020-02-06] MEDS: Enoxaparin Sodium 40 MG/0.4 ML SYRINGE SC SCH ×2 (08:22→19:59)
[2020-02-06] MEDS: NPH, Human Insulin Isophane 300 UNIT/3 ML VIAL SC SCH ×2 (08:22→20:00)
[2020-02-06] MEDS: Famotidine 20 MG TAB PER TUBE SCH ×2 (08:22→20:00)
[2020-02-06] MEDS: Lorazepam 2 MG/ML VIAL SLOW IVP PRN (08:22)
[2020-02-06] MEDS: Nystatin Cream 15 GM TUBE TOP SCH ×2 (08:23→20:01)
--- NOTE | 2020-02-06 14:34 | PRG ---
DATE OF SERVICE: 02/06/2020 SUBJECTIVE: The patient continues to receive ventilatory support, on bilevel. FiO2 remains elevated at 65%. He has become anxious at times and is on maximal doses of fentanyl and propofol. PHYSICAL EXAMINATION: VITAL SIGNS: Current vital signs; blood pressure 153/79, heart rate 98, saturation 93%, on FiO2 of 65% to 70%. GENERAL: Intubated, sedated. NECK: No adenopathy or JVD. LUNGS: Bilateral coarse rales without wheezes. HEART: Regular rate and rhythm. ABDOMEN: Soft. There is no organomegaly. EXTREMITIES: There is 1+ edema. LABORATORY AND DIAGNOSTIC DATA: White count 11,600, hemoglobin 10.7 with platelet count 279,000. Blood gas today includes pH 7.45, pCO2 of 46, pO2 of 51, and bicarbonate 31.5. This is obtained on bilevel support, FiO2 of 0.6. Electrolytes include sodium 143, potassium 4.4, chloride 104, CO2 is 30, BUN 43, creatinine 0.8. Chest x-ray today demonstrates that endotracheal tube is in good position. Bibasilar streaky consolidations are seen. A left subclavian central line is also present. There is no pneumothorax. IMPRESSION: COVID pneumonia with respiratory failure. The patient received convalescent serum. At the time of presentation, his symptoms had been present for such a time that remdesivir was not considered. There has been apparently some question by his family about additional clinical trials. I am not personally aware of any ongoing trials for which he would meet inclusion criteria. PLAN: We will continue ventilator support. His current settings include bilevel pressure and he sometimes feels very anxious. I think that since he is currently on fairly medium level pressures, we could give him a trial on IMV to see if he may tolerate that better. If not, we could certainly return him to bilevel support. He is not ready for extubation or significant weaning at this point. We will otherwise continue our current ongoing therapies. Critical care time, 32 minutes. Job ID: [id number]
--- NOTE | 2020-02-06 16:40 | RAD ---
ONE VIEW CHEST: 02/06/20 HISTORY: Pneumonia, follow-up evaluation. COMPARISON: 02/05/20. FINDINGS: Endotracheal tube and nasogastric tube as well as left sided vascular catheter remain in place. Emphy sematous changes with prominent bullous emphysematous changes in the upper lung zones is again seen. Increased interstitial densities at each lung base are again seen which may represent combination of chronic lung changes and superimposed viral pneumonitis. No pleural effusion is seen. The more conflu ent air space opacities at the right lung base have mildly improved. No other interval change. IMPRESSION: 1. Mild improvement in the confluent opacity at the right lung base suggesting minimal improveme nt in viral pneumonitis. 2. COPD and chronic lung changes. POS: [facility]
--- NOTE | 2020-02-06 17:45 | PDOC.HOSPP ---
- Subjective Encounter Date: 02/06/20 Encounter Time: 17:44 Subjective: Patient seen for follow-up regarding acute hypoxic respiratory failure secondary to COVID-19 pneumonia. Patient is intubated, could not complete review of systems. - Objective Vital Signs & Weight: Vital Signs (12 hours) Temp Pulse Resp BP Pulse Ox 02/06/20 16:00 98.5 F 33 H 02/06/20 15:19 101 H 150/61 H 02/06/20 14:00 28 H 02/06/20 12:00 98.8 F 29 H 02/06/20 10:41 101 H 144/78 H 02/06/20 10:00 31 H 02/06/20 08:00 98.6 F 31 H 92 L 02/06/20 06:49 108 H 145/77 H 02/06/20 06:00 32 H Weight Admit Weight 188 lb Weight 202 lb 9.677 oz Most Recent Monitor Data Heart Rate from ECG 104 NIBP 167/86 NIBP BP-Mean 113 Respiration from ECG 25 SpO2 94 I&O: 02/05/20 02/06/20 02/07/20 06:59 06:59 06:59 Intake Total 2819 3505.5 120 Output Total 1850 2045 960 Balance 969 1460.5 -840 Result Diagrams: 02/06/20 03:15 02/06/20 03:15 Additional Labs: Accuchecks 02/06/20 02/06/20 02/06/20 15:46 08:37 00:02 POC Glucose 151 H 202 H 192 H 02/05/20 20:09 POC Glucose 209 H I reviewed patient's labs and MAR EKG Reviewed by me: Yes (Telemetry-normal sinus rhythm) Hospitalist ROS - Review of Systems ROS unobtainable: due to endotracheal tube - Medication Medications: Active Medications Generic Name Dose Route Start Last Admin Trade Name Freq PRN Reason Stop Dose Admin Enoxaparin Sodium 40 mg 02/01/20 21:00 02/06/20 08:22 Lovenox SC 40 mg BID DHAVAL Administration Famotidine 20 mg 02/04/20 09:00 02/06/20 08:22 Famotidine 20 Mg Tab PER TUBE 20 mg BID DHAVAL Administration Hydrocortisone Sodium Succinate 50 mg 02/05/20 12:00 02/06/20 11:26 Hydrocortisone Sod Succ/Pf 100 Mg/2 Ml Vial IVP 50 mg Q6HR DHAVAL Administration Norepinephrine Bitartrate 250 mls @ 0 mls/hr 01/31/20 13:00 02/03/20 01:34 Levophed IVPB 250 mls INF DHAVAL Administration Protocol Titrate Fentanyl Citrate 2,000 mcg/ 100 mls @ 0 mls/hr 01/31/20 13:09 02/06/20 07:02 Sodium Chloride IV 03/01/20 13:09 100 mls INF DAHVAL Administration Protocol Per Protocol Ceftriaxone Sodium 1 gm/ 100 mls @ 200 mls/hr 02/03/20 09:00 02/06/20 08:21 Sodium Chloride IVPB 100 mls 0900 DHAVAL Administration Sodium Chloride 1,000 mls @ 50 mls/hr 02/04/20 09:00 02/05/20 23:49 1/2 Normal Saline IV 1,000 mls .Q20H DHAVAL Administration Insulin Human Lispro 0 units 01/31/20 12:53 02/06/20 09:15 Humalog SC 4 unit .MODERATE SLIDING SC PRN Administration Moderate Correctional Scale Insulin Human NPH 30 unit 02/04/20 09:00 02/06/20 08:22 Nph, Human Insulin Isophane 300 Unit/3 Ml Vial SC 30 unit BID DHAVAL Administration Lorazepam 2 mg 01/31/20 13:09 02/06/20 08:22 Ativan SLOW IVP 03/01/20 13:09 2 mg Q1H PRN Administration Breakthrough agitation Nitroglycerin 0.5 inch 01/31/20 14:00 02/06/20 14:10 Nitro-Bid 2% Ointment TOP 0.5 inch Q8HR DHAVAL Administration Nystatin 1 gm 01/31/20 21:00 02/06/20 08:23 Mycostatin Cream TOP 1 gm BID DHAVAL Administration Propofol 1,000 mg 01/31/20 13:09 02/06/20 15:11 Diprivan IV 03/01/20 13:09 1,000 mg INF PRN Administration TO ACHIEVE GOAL RASS Protocol Sodium Chloride 10 ml 01/31/20 21:00 02/06/20 08:22 Flush - Normal Saline IVF 10 ml Q12HR DHAVAL Administration - Exam General Appearance: awake alert Eye: anicteric sclera ENT: normocephalic atraumatic Heart: RRR Respiratory: rales Gastrointestinal: soft Neurological - other findings: Unable to assess Psychiatric - other findings: Unable to assess Hosp A/P - Plan (1) Acute respiratory failure due to COVID-19 Code(s): U07.1 - COVID-19; J96.00 - ACUTE RESPIRATORY FAILURE, UNSP W HYPOXIA OR HYPERCAPNIA Status: Acute (2) Acute respiratory failure with hypoxemia Code(s): J96.01 - ACUTE RESPIRATORY FAILURE WITH HYPOXIA Status: Acute (3) Hypertension Code(s): I10 - ESSENTIAL (PRIMARY) HYPERTENSION Status: Chronic (4) Diabetes mellitus type 2 in nonobese Code(s): E11.9 - TYPE 2 DIABETES MELLITUS WITHOUT COMPLICATIONS Status: Chronic (5) Septic shock Code(s): A41.9 - SEPSIS, UNSPECIFIED ORGANISM; R65.21 - SEVERE SEPSIS WITH SEPTIC SHOCK Status: Resolved (6) Acute kidney injury Code(s): N17.9 - ACUTE KIDNEY FAILURE, UNSPECIFIED Status: Resolved - Plan * * * Patient continues to be intubated and mechanically ventilated in the CCU. * Continue azithromycin, ceftriaxone and stress dose steroids. * DM-patient switched to NPH insulin today, continue to monitor Accu-Cheks. * Patient is on Lovenox 40 mg twice daily * Acute kidney injury-resolved * Prognosis is guarded
[2020-02-06] MEDS: Sodium Chloride 0.45% 1,000 ML IV SCH (21:58)
[2020-02-07] MEDS: HumaLOG 300 UNITS/3 ML VIAL SC PRN ×6 (00:15→23:49)
[2020-02-07] MEDS: Lorazepam 2 MG/ML VIAL SLOW IVP PRN ×3 (01:19→20:18)
[2020-02-07] MEDS: Propofol 1,000 MG/100 ML VIAL IV PRN ×5 (03:14→21:56)
[2020-02-07 04:41] LABS: Anion Gap 13 mmol/L (10-20); BUN (Urea Nitrogen) 38 mg/dL (8.4-25.7); Calc. Creatinine Clearance 116 mL/min (70-130); Calcium 8.5 mg/dL (7.8-10.44); Carbon Dioxide 31 mmol/L (23-31); Chloride 105 mmol/L (98-107); Estimated GFR-MDRD Greater than 90; Glucose 186 mg/dL (83-110); Potassium 4.6 mmol/L (3.5-5.1); Sodium 144 mmol/L (136-145)
[2020-02-07 04:47] LABS: Band 1 % (5-11); Hemoglobin 10.6 g/dL (14.0-18.0); Lymphocytes 6 % (21-51); MDiff Complete? YES; Mean Corpuscular HGB CONC 31.2 g/dL (32.0-36.0); Mean Corpuscular Hemoglobin 28.6 pg (27.0-31.0); Mean Corpuscular Volume 91.7 fL (78.0-98.0); Mean Platelet Volume 8.3 fL (7.4-10.4); Metamyelocyte 1 % (0-0); Monocytes 2 % (0-10); Neutrophil 90 % (42-75); Platelet Count 321 thou/uL (130-400); Platelet Morphology Comment Appears Adequate; RBC Distribution Width 13.2 % (11.5-14.5); RBC Morphology Normal; Red Blood Cell (RBC) Count 3.71 mill/uL (4.70-6.10); White Blood Cell (WBC) Count 13.6 thou/uL (4.8-10.8)
[2020-02-07] MEDS: Hydrocortisone Sod Succ/PF 100 mg/2 ml Vial IVP SCH ×4 (06:18→23:29)
[2020-02-07] MEDS: Nitroglycerin 2% Ointment 1 INCH/1 GM Packet TOP SCH ×3 (06:18→20:18)
[2020-02-07] MEDS: Enoxaparin Sodium 40 MG/0.4 ML SYRINGE SC SCH ×2 (08:00→20:17)
[2020-02-07] MEDS: Famotidine 20 MG TAB PER TUBE SCH ×2 (08:01→20:17)
[2020-02-07] MEDS: cefTRIAXone\\ROCEPHIN 1 GM in Sodium Chloride 0.9% 100 ML IVPB SCH (08:01)
[2020-02-07] MEDS: NPH, Human Insulin Isophane 300 UNIT/3 ML VIAL SC SCH ×2 (08:01→20:51)
[2020-02-07 08:03] LABS: Actual Bicarbonate (HCO3a) 31.1 mEq/L (22-28); Base Excess (BEa) 5.8 mEq/L (-2.0 to +3.0); Calcium, Ionized (arterial) 1.19 mmol/L (1.12-1.30); Carboxyhemoglobin (COHb) 0.4 gm% (0.0-3.0); Potassium - ABG Lab 4.46 mmol/L (3.70-5.30); pH, Arterial 7.42 (7.35-7.45)
[2020-02-07 08:06] LABS: O2 Tension (PaO2), arterial 49.9 mmHg (> 70.0)
[2020-02-07 08:07] LABS: Puncture Site RB
[2020-02-07] MEDS: Nystatin Cream 15 GM TUBE TOP SCH ×2 (08:35→20:18)
--- NOTE | 2020-02-07 09:04 | RAD ---
EXAM: CHEST ONE VIEW HISTORY: Pneumonia. Follow-up evaluation. COMPARISON: 02/06/2020 FINDINGS: Endotracheal tube, nasogastric tube, left sided facet catheter remain in place and unchanged in posit ion. Emphysematous changes are again seen with prominent bullous emphysematous changes in the upper lung zones greater on the right. Increased interstitial and patchy parenchymal airspace opacities are again seen at each lung base which have increased. There does appear to be blunting of the right lateral costophrenic angle on today's exam which could be related to pleural fluid or worsening airsp [place] opacity. No other interval change. IMPRESSION: 1. Persistent bibasilar interstitial and parenchymal airspace opacities which do appear mildly increa sed from prior study and may represent worsening bilateral pneumonia or viral pneumonitis. 2. Chronic lung changes and evidence of COPD. 3. Lines and tubes stable in position.
--- NOTE | 2020-02-07 09:59 | RAD ---
CHEST 1 VIEW UPRIGHT PORTABLE: HISTORY: Change endotracheal tube position. COMPARISON: 02/07/2020, 4:56 a.m. study. FINDINGS: Endotracheal tube, NG tube, and left subclavian catheters remain in place in satisfactory location. There is extensive hyperinflation and chronic lung changes noted bilaterally with increased linear an d interstitial markings, particularly in the bases. IMPRESSION: Hyperinflation and chronic lung changes. Life support tubes in satisfactory location. Continue shor t-term followup. Possibly slightly improved when compared to most recent study. POS: OFF
--- NOTE | 2020-02-07 12:08 | PRG ---
DATE OF SERVICE: 02/07/2020 SUBJECTIVE: Mr. Duque has been quite restless on the ventilator yesterday, and today there has been a lot of dyssynchrony with ventilator. He has been on bilevel support with fairly high FiO2. This morning, he is noted to have a leak with inability to secure adequate volume in his cuff. He was reintubated per separate note. Following re-intubation, the patient is on assist control. His respiratory pattern is much improved and is difficult to tell whether this is due to change in the ventilator mode or the fact that he has been reintubated. PHYSICAL EXAMINATION: VITAL SIGNS: Blood pressure 140/79, heart rate 101, respiratory rate 22, saturation 94%, although currently on FiO2 of 100%. GENERAL: Elderly gentleman. He did have audible leak, but no stridor. NECK: He has an enlarged neck. HEENT: He has poor dentition. LUNGS: Show bilateral coarse rales, but no wheezing. HEART: Regular rate and rhythm. ABDOMEN: Distended, soft. EXTREMITIES: He has trace ankle edema. LABORATORY DATA: White count 13,600, hemoglobin is 10.6, 90% neutrophils, and 1% bands. Blood gas included pH of 7.42, CO2 of 49, PO2 of 50, bicarbonate of 31. This is obtained on bilevel. Electrolytes were normal including a BUN of 38 and creatinine of 0.7. Chest x-ray post re-intubation shows hyperinflation, bilateral interstitial changes, possibly improved, but difficult to assess due to technique. IMPRESSION: 1. COVID pneumonia with respiratory failure. 2. General debility. PLAN: The patient was not tolerating bilevel support with very dyssynchronous respiratory pattern. The tube was probably at the level of the vocal cords explaining his leak and maybe compounding the asynchronous nature of his ventilatory status. He is at least seems to be better following placement of a new tube. He is requiring more FiO2, although I think that is a transient phenomenon. Other therapies continue without change. Critical care 35 minutes exclusive of procedures. Job ID: [id number]
--- NOTE | 2020-02-07 12:11 | OP ---
DATE OF PROCEDURE: 02/07/2020 PROCEDURE: Intubation. INDICATION: Malfunction of existing endotracheal tube. COMPLICATION: None. DESCRIPTION OF PROCEDURE: The patient has been on the ventilator for some time. There is asynchrony with his ventilatory status and an underlying tachypnea. There is significant leak of ventilatory effort. The cuff seems to inflate, but the leak cannot be controlled. A decision was made to replace the tube at that point. A Bougie was placed and a 7.5 tube exchanged. Unfortunately after placement, the volumes appeared even more difficult to administer. The tube was removed and the patient intubated using laryngoscope. Subsequent to this, the ventilator efforts are much better and he now has coordination with the ventilator effort. No further leak is identified. Review of the old tube shows it to be extremely distorted and twisted. The cuff does remain intact, suggesting that the cuff was probably in the vocal cords. Postprocedure x-ray shows good placement. Job ID: [id number]
[2020-02-07] MEDS: fentaNYL Citrate/PF 2,000 MCG in Sodium Chloride 0.9% 60 ML IV SCH (12:43)
[2020-02-07] MEDS: Sodium Chloride 0.45% 1,000 ML IV SCH (14:45)
--- NOTE | 2020-02-07 18:17 | PDOC.HOSPP ---
- Subjective Encounter Date: 02/07/20 Encounter Time: 18:16 Subjective: Patient remains on mechanical ventilation. Endotracheal tube was replaced today due to malfunction. No other overnight events. - Objective Vital Signs & Weight: Vital Signs (12 hours) Temp Pulse Resp BP Pulse Ox 02/07/20 18:13 106 H 171/92 H 02/07/20 16:00 98.3 F 29 H 02/07/20 14:43 94 146/77 H 02/07/20 14:00 95 26 H 147/77 H 02/07/20 13:55 95 143/79 H 02/07/20 12:00 99.3 F 27 H 02/07/20 11:13 100 140/79 02/07/20 10:00 27 H 02/07/20 08:00 98.7 F 34 H 94 L 02/07/20 07:37 95 158/83 H Weight Admit Weight 188 lb Weight 195 lb 1.745 oz Most Recent Monitor Data Heart Rate from ECG 105 NIBP 164/86 NIBP BP-Mean 112 Respiration from ECG 23 SpO2 95 I&O: 02/06/20 02/07/20 02/08/20 06:59 06:59 06:59 Intake Total 3505.5 3369 160 Output Total 2045 2270 1025 Balance 1460.5 1099 -865 Result Diagrams: 02/07/20 03:15 02/07/20 03:15 Additional Labs: Accuchecks 02/07/20 02/07/20 02/06/20 08:31 00:10 20:11 POC Glucose 186 H 191 H 167 H Radiology Reviewed by me: Yes (Chest x-rayno significant change) EKG Reviewed by me: Yes (Sinus rhythm on telemetry) Hospitalist ROS - Review of Systems ROS unobtainable: due to mental status - Medication Medications: Active Medications Generic Name Dose Route Start Last Admin Trade Name Freq PRN Reason Stop Dose Admin Enoxaparin Sodium 40 mg 02/01/20 21:00 02/07/20 08:00 Lovenox SC 40 mg BID DHAVAL Administration Famotidine 20 mg 02/04/20 09:00 02/07/20 08:01 Famotidine 20 Mg Tab PER TUBE 20 mg BID DHAVAL Administration Hydrocortisone Sodium Succinate 50 mg 02/05/20 12:00 02/07/20 17:03 Hydrocortisone Sod Succ/Pf 100 Mg/2 Ml Vial IVP 50 mg Q6HR DHAVAL Administration Norepinephrine Bitartrate 250 mls @ 0 mls/hr 01/31/20 13:00 02/03/20 01:34 Levophed IVPB 250 mls INF DHAVAL Administration Protocol Titrate Fentanyl Citrate 2,000 mcg/ 100 mls @ 0 mls/hr 01/31/20 13:09 02/07/20 12:43 Sodium Chloride IV 03/01/20 13:09 100 mls INF DHAVAL Administration Protocol Per Protocol Ceftriaxone Sodium 1 gm/ 100 mls @ 200 mls/hr 02/03/20 09:00 02/07/20 08:01 Sodium Chloride IVPB 100 mls 0900 DHAVAL Administration Sodium Chloride 1,000 mls @ 50 mls/hr 02/04/20 09:00 02/07/20 14:45 1/2 Normal Saline IV 1,000 mls .Q20H DHAVAL Administration Insulin Human Lispro 0 units 01/31/20 12:53 02/07/20 15:36 Humalog SC 2 unit .MODERATE SLIDING SC PRN Administration Moderate Correctional Scale Insulin Human NPH 30 unit 02/04/20 09:00 02/07/20 08:01 Nph, Human Insulin Isophane 300 Unit/3 Ml Vial SC 30 unit BID DHAVAL Administration Lorazepam 2 mg 01/31/20 13:09 02/07/20 08:42 Ativan SLOW IVP 03/01/20 13:09 2 mg Q1H PRN Administration Breakthrough agitation Nitroglycerin 0.5 inch 01/31/20 14:00 02/07/20 14:45 Nitro-Bid 2% Ointment TOP 0.5 inch Q8HR DHAVAL Administration Nystatin 1 gm 01/31/20 21:00 02/07/20 08:35 Mycostatin Cream TOP 1 gm BID DHAVAL Administration Propofol 1,000 mg 01/31/20 13:09 02/07/20 16:33 Diprivan IV 03/01/20 13:09 1,000 mg INF PRN Administration TO ACHIEVE GOAL RASS Protocol Sodium Chloride 10 ml 01/31/20 21:00 02/07/20 08:02 Flush - Normal Saline IVF 10 ml Q12HR DHAVAL Administration - Exam General Appearance: ill appearing General - other findings: on Mech Vent - bilevel Extremities: no cyanosis Hosp A/P (1) Acute respiratory failure due to COVID-19 Code(s): U07.1 - COVID-19; J96.00 - ACUTE RESPIRATORY FAILURE, UNSP W HYPOXIA OR HYPERCAPNIA Status: Acute (2) Hypertension Code(s): I10 - ESSENTIAL (PRIMARY) HYPERTENSION Status: Chronic (3) Diabetes mellitus type 2 in nonobese Code(s): E11.9 - TYPE 2 DIABETES MELLITUS WITHOUT COMPLICATIONS Status: Chronic - Plan DVT proph w/lovenox Continue steroids with antibiotics. Continue ventilatory support. Continue NPH with sliding scale. Add PRN HTN meds Recheck labs and chest x-ray in a.m. DVT and GI prophylaxis. Continue other medications as above.
[2020-02-07] MEDS ORDERED: Acetaminophen 650 MG Suppository PR PRN (18:50)
[2020-02-07] MEDS ORDERED: hydrALAZINE 20 MG/ML VIAL SLOW IVP PRN (18:51)
[2020-02-07] MEDS ORDERED: Labetalol HCl 100 MG/20 ML VIAL SLOW IVP PRN (19:08)
[2020-02-07] MEDS ORDERED: cloNIDine 0.1 MG TAB PER TUBE PRN (19:08)
[2020-02-08] MEDS: Lorazepam 2 MG/ML VIAL SLOW IVP PRN ×2 (01:59→07:44)
[2020-02-08] MEDS: Propofol 1,000 MG/100 ML VIAL IV PRN ×5 (02:54→20:33)
[2020-02-08 04:01] LABS: #Eosinphils 0.1 thou/uL (0.0-0.7); #Lymphocytes 0.6 thou/uL (1.20-3.40); #Monocytes 0.6 thou/uL (0.11-0.59); #Neutrophils 9.1 thou/uL (1.40-6.50); %Basophils 0.3 % (0.0-1.0); %Eosinophils 0.6 % (0.0-10.0); %Lymphocytes 6.1 % (21.0-51.0); %Monocytes 5.9 % (0.0-10.0); %Neutrophils 87.2 % (42.0-75.0); Hemoglobin 10.3 g/dL (14.0-18.0); Mean Corpuscular HGB CONC 31.3 g/dL (32.0-36.0); Mean Corpuscular Volume 92.6 fL (78.0-98.0); Mean Platelet Volume 7.7 fL (7.4-10.4); Platelet Count 335 thou/uL (130-400); RBC Distribution Width 13.2 % (11.5-14.5); Red Blood Cell (RBC) Count 3.56 mill/uL (4.70-6.10); White Blood Cell (WBC) Count 10.4 thou/uL (4.8-10.8)
[2020-02-08 04:19] LABS: CRP (Inflammatory) 14.93 mg/dL (= or < 0.5); Magnesium 2.2 mg/dL (1.6-2.6); Phosphorus 3.2 mg/dL (2.3-4.7)
[2020-02-08 04:23] LABS: Anion Gap 13 mmol/L (10-20); BUN (Urea Nitrogen) 38 mg/dL (8.4-25.7); Calc. Creatinine Clearance 123 mL/min (70-130); Calcium 8.5 mg/dL (7.8-10.44); Carbon Dioxide 32 mmol/L (23-31); Chloride 107 mmol/L (98-107); Estimated GFR-MDRD Greater than 90; Glucose 134 mg/dL (83-110); Potassium 4.5 mmol/L (3.5-5.1); Sodium 147 mmol/L (136-145)
[2020-02-08] MEDS ORDERED: Nitroglycerin 2% Ointment 1 INCH/1 GM Packet ONE (06:14)
[2020-02-08] MEDS: Nitroglycerin 2% Ointment 1 INCH/1 GM Packet TOP SCH ×3 (06:16→20:29)
[2020-02-08] MEDS: Hydrocortisone Sod Succ/PF 100 mg/2 ml Vial IVP SCH ×3 (06:16→17:32)
[2020-02-08 07:39] LABS: Actual Bicarbonate (HCO3a) 32.4 mEq/L (22-28); Base Excess (BEa) 6.7 mEq/L (-2.0 to +3.0); CO2 Tension 51.7 mmHg (35.0-45.0); Carboxyhemoglobin (COHb) 0.7 gm% (0.0-3.0); Hemoglobin (Hb) 11.7 g/dL (14.0-18.0); Potassium - ABG Lab 4.43 mmol/L (3.70-5.30); pH, Arterial 7.42 (7.35-7.45)
[2020-02-08] MEDS: Enoxaparin Sodium 40 MG/0.4 ML SYRINGE SC SCH ×2 (07:42→20:29)
[2020-02-08] MEDS: cefTRIAXone\\ROCEPHIN 1 GM in Sodium Chloride 0.9% 100 ML IVPB SCH (07:43)
[2020-02-08] MEDS: Famotidine 20 MG TAB PER TUBE SCH ×2 (07:44→20:29)
[2020-02-08 07:46] LABS: O2 Tension (PaO2), arterial 57.3 mmHg (> 70.0)
[2020-02-08 07:47] LABS: ALV-art Gradient 484.125 mmHg (0-20); Puncture Site RR
--- NOTE | 2020-02-08 07:56 | RAD ---
EXAM: CHEST ONE VIEW HISTORY: Pneumonia COMPARISON: 02/07/2020 FINDINGS: Endotracheal tube, nasogastric tube, and left sided vascular catheter remain in place. Emphysematous changes are again seen with prominent bullous emphysematous changes in the upper lung zones. Increased interstitial and patchy parenchymal airspace opacities are again seen at each lung base whi ch have not significantly changed when compared to prior study. No other interval change. IMPRESSION: Stable chest.
[2020-02-08] MEDS: NPH, Human Insulin Isophane 300 UNIT/3 ML VIAL SC SCH ×2 (08:34→20:42)
[2020-02-08] MEDS: Nystatin Cream 15 GM TUBE TOP SCH ×2 (09:43→20:42)
--- NOTE | 2020-02-08 10:38 | PDOC.HOSPP ---
- Subjective Encounter Date: 02/08/20 Encounter Time: 10:36 Subjective: intubated, sedated - Objective Vital Signs & Weight: Vital Signs (12 hours) Temp Pulse Resp BP Pulse Ox 02/08/20 10:00 27 H 02/08/20 08:00 99.8 F H 27 H 93 L 02/08/20 07:22 99 185/93 H 02/08/20 06:00 26 H 02/08/20 04:00 98.6 F 26 H 02/08/20 02:07 98 180/97 H 02/08/20 02:00 26 H 02/08/20 00:00 26 H 02/07/20 23:00 99.4 F Weight Admit Weight 188 lb Weight 196 lb 13.965 oz Most Recent Monitor Data Heart Rate from ECG 103 NIBP 167/81 NIBP BP-Mean 109 Respiration from ECG 27 SpO2 96 I&O: 02/07/20 02/08/20 02/09/20 06:59 06:59 06:59 Intake Total 3369 1359.6 80 Output Total 2270 2005 350 Balance 1099 -645.4 -270 Result Diagrams: 02/08/20 03:30 02/08/20 03:30 Additional Labs: Accuchecks 02/08/20 02/08/20 02/07/20 08:32 03:51 23:41 POC Glucose 148 H 132 H 157 H 02/07/20 20:30 POC Glucose 157 H Radiology Reviewed by me: Yes (cxr- diffuse PNA, ET tube) Hospitalist ROS - Medication Medications: Active Medications Generic Name Dose Route Start Last Admin Trade Name [place] PRN Reason Stop Dose Admin Enoxaparin Sodium 40 mg 02/01/20 21:00 02/08/20 07:42 Lovenox SC 40 mg BID DHAVAL Administration Famotidine 20 mg 02/04/20 09:00 02/08/20 07:44 Famotidine 20 Mg Tab PER TUBE 20 mg BID DHAVAL Administration Hydrocortisone Sodium Succinate 50 mg 02/05/20 12:00 02/08/20 06:16 Hydrocortisone Sod Succ/Pf 100 Mg/2 Ml Vial IVP 50 mg Q6HR DHAVAL Administration Norepinephrine Bitartrate 250 mls @ 0 mls/hr 01/31/20 13:00 02/03/20 01:34 Levophed IVPB 250 mls INF DHAVAL Administration Protocol Titrate Fentanyl Citrate 2,000 mcg/ 100 mls @ 0 mls/hr 01/31/20 13:09 02/07/20 12:43 Sodium Chloride IV 03/01/20 13:09 100 mls INF DHAVAL Administration Protocol Per Protocol Ceftriaxone Sodium 1 gm/ 100 mls @ 200 mls/hr 02/03/20 09:00 02/08/20 07:43 Sodium Chloride IVPB 100 mls 0900 DHAVAL Administration Sodium Chloride 1,000 mls @ 50 mls/hr 02/04/20 09:00 02/07/20 14:45 1/2 Normal Saline IV 1,000 mls .Q20H DHAVAL Administration Insulin Human Lispro 0 units 01/31/20 12:53 02/07/20 23:49 Humalog SC 2 unit .MODERATE SLIDING SC PRN Administration Moderate Correctional Scale Insulin Human NPH 30 unit 02/04/20 09:00 02/08/20 08:34 Nph, Human Insulin Isophane 300 Unit/3 Ml Vial SC 30 unit BID DHAVAL Administration Lorazepam 2 mg 01/31/20 13:09 02/08/20 07:44 Ativan SLOW IVP 03/01/20 13:09 2 mg Q1H PRN Administration Breakthrough agitation Nitroglycerin 0.5 inch 01/31/20 14:00 02/08/20 06:16 Nitro-Bid 2% Ointment TOP 0.5 inch Q8HR DHAVAL Administration Nystatin 1 gm 01/31/20 21:00 02/08/20 09:43 Mycostatin Cream TOP 1 gm BID DHAVAL Administration Propofol 1,000 mg 01/31/20 13:09 02/08/20 07:42 Diprivan IV 03/01/20 13:09 1,000 mg INF PRN Administration TO ACHIEVE GOAL RASS Protocol Sodium Chloride 10 ml 01/31/20 21:00 02/08/20 07:45 Flush - Normal Saline IVF 10 ml Q12HR DHAVAL Administration - Exam Neck: no JVD Heart: RRR Respiratory - other findings: diffuse coase BS with rhonchi Gastrointestinal: soft, non-tender, normal bowel sounds Extremities: no edema Hosp A/P (1) Acute kidney injury Code(s): N17.9 - ACUTE KIDNEY FAILURE, UNSPECIFIED Status: Acute (2) Acute respiratory failure due to COVID-19 Code(s): U07.1 - COVID-19; J96.00 - ACUTE RESPIRATORY FAILURE, UNSP W HYPOXIA OR HYPERCAPNIA Status: Acute (3) Acute respiratory failure with hypoxemia Code(s): J96.01 - ACUTE RESPIRATORY FAILURE WITH HYPOXIA Status: Acute (4) Palliative care encounter Code(s): Z51.5 - ENCOUNTER FOR PALLIATIVE CARE Status: Acute (5) Diabetes mellitus type 2 in nonobese Code(s): E11.9 - TYPE 2 DIABETES MELLITUS WITHOUT COMPLICATIONS Status: Chronic (6) Hypertension Code(s): I10 - ESSENTIAL (PRIMARY) HYPERTENSION Status: Chronic Qualifiers: Hypertension type: essential hypertension Qualified Code(s): I10 - Essential (primary) hypertension - Plan vent dependent, on 100% O2 on iv steroids on anticoag on iv anti-bx discuss with alcoholic counselor
[2020-02-08] MEDS: fentaNYL Citrate/PF 2,000 MCG in Sodium Chloride 0.9% 60 ML IV SCH (10:56)
[2020-02-08] MEDS: Sodium Chloride 0.45% 1,000 ML IV SCH (12:05)
[2020-02-08] MEDS: HumaLOG 300 UNITS/3 ML VIAL SC PRN ×2 (12:18→16:42)
[2020-02-08] MEDS ORDERED: Polyethylene Glycol 3350 17 GM Packet PO PRN (14:25)
[2020-02-08] MEDS ORDERED: Polyethylene Glycol 3350 17 GM Packet PO SCH (14:30)
[2020-02-08] MEDS: Vecuronium 10 MG VIAL IV PRN (14:55)
--- NOTE | 2020-02-08 16:36 | PRG ---
DATE OF SERVICE: 02/08/2020 SUBJECTIVE: Darrius Duque remains mechanically ventilated. His gas exchange improves with suctioning per my discussion and replacement of his endotracheal tube yesterday. Dr. Olivia's efforts are appreciated. Remains mechanically ventilated. His hemodynamics remain stable. OBJECTIVE: LUNGS: Unchanged. HEART: Unchanged. ABDOMEN: Unchanged. VITAL SIGNS: He is afebrile. LABORATORY DATA: White count 10.4, hemoglobin 10.3, platelets 335. Sodium 147, potassium 4.5, chloride 107, bicarb 32, BUN 38, creatinine 0.6, glucose 134. PH 7.42, CO2 of 51, PO2 of 57 on 85% FiO2. IMPRESSION: 1. COVID pneumonia. 2. Poorly-controlled diabetes prior to admission. 3. Status post prone ventilation. Overall, he is clinically stable, but still quite ill as expected. Critical Care time 30 min. Job ID: [id number] MTDD
[2020-02-09] MEDS: Hydrocortisone Sod Succ/PF 100 mg/2 ml Vial IVP SCH ×5 (00:46→23:48)
[2020-02-09] MEDS: Acetaminophen 650 MG/20.3 ML UDCUP PO PRN ×2 (01:56→22:17)
[2020-02-09] MEDS: Lorazepam 2 MG/ML VIAL SLOW IVP PRN ×3 (01:56→13:01)
[2020-02-09] MEDS: fentaNYL Citrate/PF 2,000 MCG in Sodium Chloride 0.9% 60 ML IV SCH ×2 (03:00→20:09)
[2020-02-09] MEDS: Propofol 1,000 MG/100 ML VIAL IV PRN ×6 (03:00→22:17)
[2020-02-09 03:40] LABS: Anion Gap 11 mmol/L (10-20); BUN (Urea Nitrogen) 41 mg/dL (8.4-25.7); Calc. Creatinine Clearance 119 mL/min (70-130); Calcium 8.6 mg/dL (7.8-10.44); Carbon Dioxide 33 mmol/L (23-31); Chloride 107 mmol/L (98-107); Estimated GFR-MDRD Greater than 90; Glucose 176 mg/dL (83-110); Potassium 4.4 mmol/L (3.5-5.1); Sodium 147 mmol/L (136-145)
[2020-02-09 03:43] LABS: Band 7 % (5-11); Hemoglobin 10.4 g/dL (14.0-18.0); Lymphocytes 10 % (21-51); MDiff Complete? YES; Mean Corpuscular HGB CONC 32.2 g/dL (32.0-36.0); Mean Corpuscular Hemoglobin 29.3 pg (27.0-31.0); Mean Corpuscular Volume 91.1 fL (78.0-98.0); Mean Platelet Volume 7.8 fL (7.4-10.4); Metamyelocyte 2 % (0-0); Monocytes 5 % (0-10); Myelocyte 1 % (0-0); Neutrophil 75 % (42-75); Platelet Count 362 thou/uL (130-400); Platelet Morphology Comment Appears Adequate; RBC Distribution Width 13.3 % (11.5-14.5); Red Blood Cell (RBC) Count 3.54 mill/uL (4.70-6.10); White Blood Cell (WBC) Count 11.4 thou/uL (4.8-10.8)
[2020-02-09] MEDS: Nitroglycerin 2% Ointment 1 INCH/1 GM Packet TOP SCH ×3 (06:16→22:18)
[2020-02-09] MEDS: HumaLOG 300 UNITS/3 ML VIAL SC PRN ×2 (06:19→20:55)
[2020-02-09 07:06] LABS: Actual Bicarbonate (HCO3a) 30.1 mEq/L (22-28); Base Excess (BEa) 4.7 mEq/L (-2.0 to +3.0); CO2 Tension 47.6 mmHg (35.0-45.0); Calcium, Ionized (arterial) 1.21 mmol/L (1.12-1.30); Hemoglobin (Hb) 13.6 g/dL (14.0-18.0); Potassium - ABG Lab 4.32 mmol/L (3.70-5.30); pH, Arterial 7.42 (7.35-7.45)
[2020-02-09 07:43] LABS: O2 Tension (PaO2), arterial 53.2 mmHg (> 70.0); Puncture Site RRA
--- NOTE | 2020-02-09 07:54 | RAD ---
Chest one view HISTORY: Pneumonia. Follow-up. COMPARISON: 02/08/2020. FINDINGS: Cardiac silhouette is magnified and remains partially obscured by ill-defined, patchy infil trates throughout each lung, more pronounced at the lung bases. Pulmonary vasculature are within normal limits. Mediastinum is midline with aortic calcification. Lines and tubes are unchanged in position. Ill-defined patchy areas of parenchymal infiltrate are similar in appearance to the prior study. Subt le blunting of the right costophrenic angles again demonstrated. No evidence of pneumothorax. IMPRESSION : Multifocal infiltrates, right pleural fluid, and other findings are stable.
[2020-02-09] MEDS: Enoxaparin Sodium 40 MG/0.4 ML SYRINGE SC SCH ×2 (08:24→20:03)
[2020-02-09] MEDS: cefTRIAXone\\ROCEPHIN 1 GM in Sodium Chloride 0.9% 100 ML IVPB SCH (08:24)
[2020-02-09] MEDS: Famotidine 20 MG TAB PER TUBE SCH ×2 (08:25→20:03)
[2020-02-09] MEDS: NPH, Human Insulin Isophane 300 UNIT/3 ML VIAL SC SCH ×2 (08:25→20:51)
[2020-02-09] MEDS: Nystatin Cream 15 GM TUBE TOP SCH ×2 (08:25→20:51)
[2020-02-09] MEDS: Sodium Chloride 0.45% 1,000 ML IV SCH (08:26)
[2020-02-09] MEDS: Vecuronium 10 MG VIAL IV PRN ×2 (08:56→09:55)
--- NOTE | 2020-02-09 10:43 | PDOC.HOSPP ---
- Subjective Encounter Date: 02/09/20 Encounter Time: 10:41 Subjective: intubated - Objective Vital Signs & Weight: Vital Signs (12 hours) Temp Pulse Resp BP Pulse Ox 02/09/20 10:00 26 H 02/09/20 08:00 100.1 F H 26 H 95 02/09/20 06:45 106 H 137/79 02/09/20 06:00 26 H 02/09/20 04:00 26 H 02/09/20 02:23 105 H 150/80 H 02/09/20 02:00 99.9 F H 26 H 02/09/20 00:00 26 H Weight Admit Weight 188 lb Weight 196 lb 13.965 oz Most Recent Monitor Data Heart Rate from ECG 116 NIBP 130/70 NIBP BP-Mean 90 Respiration from ECG 2 SpO2 88 I&O: 02/08/20 02/09/20 02/10/20 06:59 06:59 06:59 Intake Total 1359.6 3065.9 230 Output Total 2004 2079 380 Balance -645.4 985.9 -150 Result Diagrams: 02/09/20 03:15 02/09/20 03:15 Additional Labs: Accuchecks 02/09/20 02/09/20 02/08/20 09:25 00:55 20:50 POC Glucose 135 H 167 H 176 H 02/08/20 02/08/20 02/07/20 16:26 12:17 15:12 POC Glucose 205 H 198 H 168 H 02/07/20 02/06/20 11:34 11:37 POC Glucose 204 H 178 H Radiology Reviewed by me: Yes (cxr-bilat diffuse infiltrates, R pleural effusi on, ET tube good position) Hospitalist ROS - Medication Medications: Active Medications Generic Name Dose Route Start Last Admin Trade Name Freq PRN Reason Stop Dose Admin Acetaminophen 650 mg 02/07/20 18:50 02/09/20 01:56 Acetaminophen 650 Mg/20.3 Ml Udcup PO 650 mg Q4H PRN Administration pain/fever Enoxaparin Sodium 40 mg 02/01/20 21:00 02/09/20 08:24 Lovenox SC 40 mg BID DHAVAL Administration Famotidine 20 mg 02/04/20 09:00 02/09/20 08:25 Famotidine 20 Mg Tab PER TUBE 20 mg BID DHAVAL Administration Hydrocortisone Sodium Succinate 50 mg 02/05/20 12:00 02/09/20 06:16 Hydrocortisone Sod Succ/Pf 100 Mg/2 Ml Vial IVP 50 mg Q6HR DHAVAL Administration Norepinephrine Bitartrate 250 mls @ 0 mls/hr 01/31/20 13:00 02/03/20 01:34 Levophed IVPB 250 mls INF DHAVAL Administration Protocol Titrate Fentanyl Citrate 2,000 mcg/ 100 mls @ 0 mls/hr 01/31/20 13:09 02/09/20 03:00 Sodium Chloride IV 03/01/20 13:09 100 mls INF DHAVAL Administration Protocol Per Protocol Ceftriaxone Sodium 1 gm/ 100 mls @ 200 mls/hr 02/03/20 09:00 02/09/20 08:24 Sodium Chloride IVPB 100 mls 0900 DHAVAL Administration Sodium Chloride 1,000 mls @ 50 mls/hr 02/04/20 09:00 02/09/20 08:26 1/2 Normal Saline IV 1,000 mls .Q20H DHAVAL Administration Insulin Human Lispro 0 units 01/31/20 12:53 02/09/20 06:19 Humalog SC 2 unit .MODERATE SLIDING SC PRN Administration Moderate Correctional Scale Insulin Human NPH 30 unit 02/04/20 09:00 02/09/20 08:25 Nph, Human Insulin Isophane 300 Unit/3 Ml Vial SC 30 unit BID DHAVAL Administration Lorazepam 2 mg 01/31/20 13:09 02/09/20 08:24 Ativan SLOW IVP 03/01/20 13:09 2 mg Q1H PRN Administration Breakthrough agitation Nitroglycerin 0.5 inch 01/31/20 14:00 02/09/20 06:16 Nitro-Bid 2% Ointment TOP 0.5 inch Q8HR DHAVAL Administration Nystatin 1 gm 01/31/20 21:00 02/09/20 08:25 Mycostatin Cream TOP 1 gm BID DHAVAL Administration Propofol 1,000 mg 01/31/20 13:09 02/09/20 08:24 Diprivan IV 03/01/20 13:09 1,000 mg INF PRN Administration TO ACHIEVE GOAL RASS Protocol Sodium Chloride 10 ml 01/31/20 21:00 02/09/20 08:27 Flush - Normal Saline IVF 10 ml Q12HR DHAVAL Administration Vecuronium [place] 10 mg 02/08/20 13:59 02/09/20 09:55 Vecuronium 10 Mg Vial IV 10 mg Q1H PRN Administration Agitation - Exam Neck: no JVD Heart: RRR, no murmur Heart - other findings: rapid Respiratory - other findings: coarse BS, rhonchi all colon Gastrointestinal: soft, normal bowel sounds Extremities: no edema Hosp A/P (1) Acute respiratory failure due to COVID-19 Code(s): U07.1 - COVID-19; J96.00 - ACUTE RESPIRATORY FAILURE, UNSP W HYPOXIA OR HYPERCAPNIA Status: Acute (2) Acute respiratory failure with hypoxemia Code(s): J96.01 - ACUTE RESPIRATORY FAILURE WITH HYPOXIA Status: Acute (3) Palliative care encounter Code(s): Z51.5 - ENCOUNTER FOR PALLIATIVE CARE Status: Acute (4) Diabetes mellitus type 2 in nonobese Code(s): E11.9 - TYPE 2 DIABETES MELLITUS WITHOUT COMPLICATIONS Status: Chron ic (5) Hypertension Code(s): I10 - ESSENTIAL (PRIMARY) HYPERTENSION Status: Chronic Qualifiers: Hypertension type: essential hypertension Qualified Code(s): I10 - Essential (primary) hypertension (6) Acute kidney injury Code(s): N17.9 - ACUTE KIDNEY FAILURE, UNSPECIFIED Status: Resolved - Plan vent dependent, on 100% O2 on iv steroids on anticoag on iv anti-bx discuss with grants assistant
--- NOTE | 2020-02-09 13:53 | PDOC.PALPN ---
Palliative Progress Note - Subjective Intubated, mechanical ventilation, sedated - Objective Vital Signs: Vital Signs - Most Recent Temp Pulse Resp BP Pulse Ox 99.8 F H 106 H 29 H 137/79 95 02/09/20 12:00 02/09/20 06:45 02/09/20 12:00 02/09/20 06:45 02/09/20 08:00 - Physical Exam Constitutional: encephalitic, ill appearing HEENT: moist MMs Respiratory: no wheezing Deviation from normal: coarse breath sounds bilterally, diminished. Cardiovascular: RRR Gastrointestinal: soft, non-tender, positive bowel sounds Genitourinary: jefferson catheter Musculoskeletal: edema present Deviation from normal: sedated Skin: cap refill <2 seconds Deviation from normal: sedted/encephalopathic - Assessment (1) Acute respiratory failure due to COVID-19 Code(s): U07.1 - COVID-19; J96.00 - ACUTE RESPIRATORY FAILURE, UNSP W HYPOXIA OR HYPERCAPNIA Current Visit: Yes Status: Acute (2) Acute respiratory failure with hypoxemia Code(s): J96.01 - ACUTE RESPIRATORY FAILURE WITH HYPOXIA Current Visit: Yes Status: Acute (3) Diabetes mellitus type 2 in nonobese Code(s): E11.9 - TYPE 2 DIABETES MELLITUS WITHOUT COMPLICATIONS Current Visit: Yes Status: Chronic (4) Hypertension Code(s): I10 - ESSENTIAL (PRIMARY) HYPERTENSION Current Visit: Yes Status: Chronic Qualifiers: Hypertension type: essential hypertension Qualified Code(s): I10 - Essentia l (primary) hypertension (5) Palliative care encounter Code(s): Z51.5 - ENCOUNTER FOR PALLIATIVE CARE Current Visit: Yes Status: Acute - Plan Plan: Palliative care communicated with patient . Discussed DNAR status. Discussed that all supportive care will continue, including aggressive measures up unitl the point of cardiac resuscitation. She is tearful, but states that she wishes for him to be a DNAR and restated to continue with all aggressive measures otherwise. Emotional support, she states that she is surprised to hear that he did not tolerate being proned today, and that he remains febrile. Continued with education in relation that we "Hope for the best, but have to plan for the worst". Daughter to come to bedside today, and her son (who were both previously Covid positive) are getting tested today to hopefully be able to visit tomorrow. Palliative Care will continue to offer emotional support for family and assist with Goal of care for Mr Duque [35] minutes spent on this encounter with >50% of the time in counseling and co ordination of care. - ROS Non Response: due to endotracheal tube, due to mental status
--- NOTE | 2020-02-09 14:12 | PRG ---
DATE OF SERVICE: 02/09/2020 SUBJECTIVE: Darrius Duque is clinically stable. OBJECTIVE: VITAL SIGNS: He is afebrile. Respiratory rates in the 20s, oximetry is 95%, heart rate 116, blood pressure 131/72. LUNGS: Remarkable for coarse equal breath sounds. HEART: Regular rhythm. ABDOMEN: Soft. LABORATORY DATA: White count 11.4, hemoglobin 10.4, platelets 362. Sodium 147, potassium 4.4, chloride 107, bicarb 33, BUN 41, creatinine 0.7. Intake and outputs positive 985. Chest x-ray is essentially unchanged. IMPRESSION: 1. Respiratory failure secondary to COVID pneumonia. 2. Diabetes. 3. Status post prone ventilation. His gas exchange is deteriorated overnight, so I recommended prone ventilation again today. We will continue to follow. CRITICAL CARE TIME: 30 minutes. Job ID: [id number]
--- NOTE | 2020-02-09 15:00 | PDOC.PALFU ---
Palliative Care Follow-up Note elected to transition back to full resuscitation after visiting with her children. Family meeting with patient daughter in person, via phone, lining setter and primary nurse. return to full resuscitation
[2020-02-10] MEDS: HumaLOG 300 UNITS/3 ML VIAL SC PRN ×5 (00:05→15:35)
[2020-02-10] MEDS: Propofol 1,000 MG/100 ML VIAL IV PRN ×6 (01:30→19:59)
[2020-02-10] MEDS: Nitroglycerin 2% Ointment 1 INCH/1 GM Packet TOP SCH ×3 (05:06→21:40)
[2020-02-10] MEDS: Sodium Chloride 0.45% 1,000 ML IV SCH (05:06)
[2020-02-10] MEDS: Hydrocortisone Sod Succ/PF 100 mg/2 ml Vial IVP SCH ×4 (05:06→23:15)
[2020-02-10 05:57] LABS: #Eosinphils 0.1 thou/uL (0.0-0.7); #Lymphocytes 0.9 thou/uL (1.20-3.40); #Monocytes 0.7 thou/uL (0.11-0.59); %Eosinophils 0.5 % (0.0-10.0); %Lymphocytes 7.7 % (21.0-51.0); %Monocytes 6.2 % (0.0-10.0); %Neutrophils 85.5 % (42.0-75.0); Mean Corpuscular HGB CONC 30.4 g/dL (32.0-36.0); Mean Corpuscular Hemoglobin 27.9 pg (27.0-31.0); Mean Corpuscular Volume 91.9 fL (78.0-98.0); Mean Platelet Volume 8.2 fL (7.4-10.4); Platelet Count 363 thou/uL (130-400); RBC Distribution Width 13.5 % (11.5-14.5); Red Blood Cell (RBC) Count 3.59 mill/uL (4.70-6.10); White Blood Cell (WBC) Count 11.7 thou/uL (4.8-10.8)
[2020-02-10 06:07] LABS: Anion Gap 13 mmol/L (10-20); BUN (Urea Nitrogen) 47 mg/dL (8.4-25.7); Calc. Creatinine Clearance 121 mL/min (70-130); Calcium 8.7 mg/dL (7.8-10.44); Carbon Dioxide 32 mmol/L (23-31); Chloride 107 mmol/L (98-107); Estimated GFR-MDRD Greater than 90; Glucose 162 mg/dL (83-110); Potassium 4.5 mmol/L (3.5-5.1); Sodium 147 mmol/L (136-145)
[2020-02-10] MEDS: Enoxaparin Sodium 40 MG/0.4 ML SYRINGE SC SCH ×2 (07:43→20:00)
[2020-02-10] MEDS: cefTRIAXone\\ROCEPHIN 1 GM in Sodium Chloride 0.9% 100 ML IVPB SCH (07:43)
[2020-02-10] MEDS: Famotidine 20 MG TAB PER TUBE SCH ×2 (07:44→20:00)
[2020-02-10] MEDS: NPH, Human Insulin Isophane 300 UNIT/3 ML VIAL SC SCH ×2 (07:44→20:00)
--- NOTE | 2020-02-10 07:55 | RAD ---
EXAM: CHEST ONE VIEW HISTORY: Pneumonia. Follow-up evaluation. COMPARISON: 02/09/2020 FINDINGS: Endotracheal tube, nasogastric tube, left-sided vascular catheter remain unchanged in position. Emphy sematous changes are again seen within the lungs bilaterally. There are increased interstitial and patchy parenchymal airspace opacities within the lungs bilaterally overall similar to prior exam. Sma ll right pleural effusion is present. No other interval change. IMPRESSION: Stable chest with bibasilar interstitial and patchy parenchymal airspace opacities worrisome for biba silar pneumonia and right pleural effusion.
--- NOTE | 2020-02-10 08:09 | PDOC.HOSPP ---
- Subjective Encounter Date: 02/10/20 Encounter Time: 08:08 Subjective: intubated, sedated - Objective Vital Signs & Weight: Vital Signs (12 hours) Temp Pulse Resp BP 02/10/20 06:00 26 H 02/10/20 05:01 101 H 02/10/20 04:00 99.9 F H 26 H 02/10/20 02:10 103 H 127/67 02/10/20 02:00 26 H 02/10/20 00:00 100.5 F H 26 H 02/09/20 22:00 26 H 02/09/20 21:36 109 H 133/70 Weight Admit Weight 188 lb Weight 211 lb 6.773 oz Most Recent Monitor Data Heart Rate from ECG 102 NIBP 118/66 NIBP BP-Mean 83 Respiration from ECG 26 SpO2 93 I&O: 02/09/20 02/10/20 02/11/20 06:59 06:59 06:59 Intake Total 3065.9 3104.4 Output Total 20790 Balance 985.9 1054.4 Result Diagrams: 02/10/20 05:15 02/10/20 05:15 Additional Labs: Accuchecks 02/10/20 02/10/20 02/09/20 05:19 00:07 20:23 POC Glucose 156 H 186 H 218 H 02/09/20 02/09/20 17:07 09:25 POC Glucose 170 H 135 H Radiology Reviewed by me: Yes (cxr-ET tune in good position, bilat pna) Hospitalist ROS - Medication Medications: Active Medications Generic Name Dose Route Start Last Admin Trade Name Freq PRN Reason Stop Dose Admin Acetaminophen 650 mg 02/07/20 18:50 02/09/20 22:17 Acetaminophen 650 Mg/20.3 Ml Udcup PO 650 mg Q4H PRN Administration pain/fever Enoxaparin Sodium 40 mg 02/01/20 21:00 02/10/20 07:43 Lovenox SC 40 mg BID DHAVAL Administration Famotidine 20 mg 02/04/20 09:00 02/10/20 07:44 Famotidine 20 Mg Tab PER TUBE 20 mg BID DHAVAL Administration Hydrocortisone Sodium Succinate 50 mg 02/05/20 12:00 02/10/20 05:06 Hydrocortisone Sod Succ/Pf 100 Mg/2 Ml Vial IVP 50 mg Q6HR DHAVAL Administration Norepinephrine Bitartrate 250 mls @ 0 mls/hr 01/31/20 13:00 02/03/20 01:34 Levophed IVPB 250 mls INF DHAVAL Administration Protocol Titrate Fentanyl Citrate 2,000 mcg/ 100 mls @ 0 mls/hr 01/31/20 13:09 02/09/20 20:09 Sodium Chloride IV 03/01/20 13:09 100 mls INF DHAVAL Administration Protocol Per Protocol Ceftriaxone Sodium 1 gm/ 100 mls @ 200 mls/hr 02/03/20 09:00 02/10/20 07:43 Sodium Chloride IVPB 100 mls 0900 DHAVAL Administration Sodium Chloride 1,000 mls @ 50 mls/hr 02/04/20 09:00 02/10/20 05:06 1/2 Normal Saline IV 1,000 mls .Q20H DHAVAL Administration Insulin Human Lispro 0 units 01/31/20 12:53 02/10/20 05:49 Humalog SC 2 unit .MODERATE SLIDING SC PRN Administration Moderate Correctional Scale Insulin Human NPH 30 unit 02/04/20 09:00 02/10/20 07:44 Nph, Human Insulin Isophane 300 Unit/3 Ml Vial SC 30 unit BID DHAVAL Administration Lorazepam 2 mg 01/31/20 13:09 02/09/20 13:01 Ativan SLOW IVP 03/01/20 13:09 2 mg Q1H PRN Administration Breakthrough agitation Nitroglycerin 0.5 inch 01/31/20 14:00 02/10/20 05:06 Nitro-Bid 2% Ointment TOP 0.5 inch Q8HR DHAVAL Administration Nystatin 1 gm 01/31/20 21:00 02/09/20 20:51 Mycostatin Cream TOP 1 gm BID DHAVAL Administration Propofol 1,000 mg 01/31/20 13:09 02/10/20 07:48 Diprivan IV 03/01/20 13:09 1,000 mg INF PRN Administration TO ACHIEVE GOAL RASS Protocol Sodium Chloride 10 ml 01/31/20 21:00 02/09/20 20:03 Flush - Normal Saline IVF 10 ml Q12HR DHAVAL Administration Vecuronium [place] 10 mg 02/08/20 13:59 02/09/20 09:55 Vecuronium 10 Mg Vial IV 10 mg Q1H PRN Administration Agitation - Exam Neck: no JVD Heart: RRR, no murmur Respiratory - other findings: coarse, diffuse rhonchi Gastrointestinal: soft, non-tender, normal bowel sounds Extremities: 1+ LE edema Hosp A/P (1) Pneumonia due to COVID-19 virus Code(s): U07.1 - COVID-19; J12.89 - OTHER VIRAL PNEUMONIA Status: Acute (2) Acute respiratory failure due to COVID-19 Code(s): U07.1 - COVID-19; J96.00 - ACUTE RESPIRATORY FAILURE, UNSP W HYPOXIA OR HYPERCAPNIA Status: Acute (3) Acute respiratory failure with hypoxemia Code(s): J96.01 - ACUTE RESPIRATORY FAILURE WITH HYPOXIA Status: Acute (4) Palliative care encounter Code(s): Z51.5 - ENCOUNTER FOR PALLIATIVE CARE Status: Acute (5) Diabetes mellitus type 2 in nonobese Code(s): E11.9 - TYPE 2 DIABETES MELLITUS WITHOUT COMPLICATIONS Status: Chronic (6) Hypertension Code(s): I10 - ESSENTIAL (PRIMARY) HYPERTENSION Status: Chronic Qualifiers: Hypertension type: essential hypertension Qualified Code(s): I10 - Essential (primary) hypertension (7) Acute kidney injury Code(s): N17.9 - ACUTE KIDNEY FAILURE, UNSPECIFIED Status: Resolved - Plan vent dependent, on 100% O2 on iv steroids on anticoag on iv anti-bx covaescent plasma accu/ss discuss with marketing liaison
[2020-02-10 08:17] LABS: Actual Bicarbonate (HCO3a) 31.4 mEq/L (22-28); Base Excess (BEa) 4.4 mEq/L (-2.0 to +3.0); CO2 Tension 58.7 mmHg (35.0-45.0); Calcium, Ionized (arterial) 1.21 mmol/L (1.12-1.30); Carboxyhemoglobin (COHb) 0.7 gm% (0.0-3.0); Hemoglobin (Hb) 11.4 g/dL (14.0-18.0); Potassium - ABG Lab 4.47 mmol/L (3.70-5.30); pH, Arterial 7.35 (7.35-7.45)
[2020-02-10 08:28] LABS: O2 Tension (PaO2), arterial 52.7 mmHg (> 70.0)
[2020-02-10 08:29] LABS: ALV-art Gradient 551.275 mmHg (0-20); Puncture Site RRA
[2020-02-10] MEDS: Nystatin Cream 15 GM TUBE TOP SCH ×2 (08:58→21:40)
[2020-02-10] MEDS: fentaNYL Citrate/PF 2,000 MCG in Sodium Chloride 0.9% 60 ML IV SCH (12:30)
[2020-02-10] MEDS ORDERED: Fentanyl BOLUS 250 ML IVPB PRN (13:56)
[2020-02-10] MEDS ORDERED: Morphine 2 MG/ML VIAL SLOW IVP PRN (13:57)
[2020-02-10] MEDS ORDERED: Lorazepam 2 MG/ML VIAL SLOW IVP PRN (13:57)
[2020-02-10] MEDS ORDERED: fentaNYL Citrate/PF 2,000 MCG in Sodium Chloride 0.9% 60 ML IV SCH (14:00)
--- NOTE | 2020-02-10 22:59 | PRG ---
DATE OF SERVICE: 02/10/2020 Mr. Duque was briefly yesterday. It did not really help. He has been ventilated in a conventional position since then. CT scanning that was done when he came in on the was reviewed. He has an incredible amount of upper lobe bullous disease. This is surprising he reportedly has a history of not smoking. If he truly is a nonsmoker, I would wonder about alpha-1 antitrypsin deficiency. My associate, Dr. Little, noted that he quit smoking at age 35. He was apparently diagnosed with COVID on approximately the . He became short of breath on the and was admitted and was intubated en route. Past medical history otherwise has been reviewed. His hemodynamics remained reasonably stable. His blood pressure is 124/69, heart rate is 106. His FiO2 unfortunately is a 95%. His airway pressures are managed by bilevel ventilation. OBJECTIVE: LUNGS: Unchanged. HEART: Unchanged. ABDOMEN: Unchanged. LABORATORY DATA: White count 11.7, hemoglobin 10, platelets 363. Sodium 147, potassium 4.5, chloride 107, bicarb 32, BUN 47, creatinine 0.7. IMPRESSION: 1. COVID pneumonia. 2. 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 He remains a full code patient given that he is now 20 days into this illness and is on 95% oxygen, it is extremely unlikely that he will survive this and recover, especially in light of his extensive lung disease, it is pre-existing. We will continue with supportive care. He can probably come off isolation tomorrow if we can truly document that his first COVID positive test was on the . Critical care time 30 min. Job ID: [id number] MTDD
[2020-02-10] MEDS: Acetaminophen 650 MG/20.3 ML UDCUP PO PRN (23:15)
[2020-02-11] MEDS: Propofol 1,000 MG/100 ML VIAL IV PRN ×5 (00:02→13:29)
[2020-02-11] MEDS: HumaLOG 300 UNITS/3 ML VIAL SC PRN ×3 (00:18→14:00)
[2020-02-11] MEDS: Sodium Chloride 0.45% 1,000 ML IV SCH (03:23)
[2020-02-11 05:06] LABS: #Monocytes 0.8 thou/uL (0.11-0.59); #Neutrophils 13.6 thou/uL (1.40-6.50); %Basophils 0.1 % (0.0-1.0); %Eosinophils 0.3 % (0.0-10.0); %Lymphocytes 6.6 % (21.0-51.0); %Monocytes 5.4 % (0.0-10.0); %Neutrophils 87.7 % (42.0-75.0); Hemoglobin 10.6 g/dL (14.0-18.0); Mean Corpuscular HGB CONC 31.4 g/dL (32.0-36.0); Mean Corpuscular Hemoglobin 29.4 pg (27.0-31.0); Mean Corpuscular Volume 93.5 fL (78.0-98.0); Mean Platelet Volume 7.8 fL (7.4-10.4); Platelet Count 382 thou/uL (130-400); RBC Distribution Width 13.7 % (11.5-14.5); White Blood Cell (WBC) Count 15.6 thou/uL (4.8-10.8)
[2020-02-11 05:27] LABS: Anion Gap 13 mmol/L (10-20); BUN (Urea Nitrogen) 45 mg/dL (8.4-25.7); Calc. Creatinine Clearance 124 mL/min (70-130); Calcium 8.7 mg/dL (7.8-10.44); Carbon Dioxide 31 mmol/L (23-31); Chloride 107 mmol/L (98-107); Estimated GFR-MDRD Greater than 90; Glucose 124 mg/dL (83-110); Potassium 4.6 mmol/L (3.5-5.1); Sodium 146 mmol/L (136-145)
[2020-02-11] MEDS: Hydrocortisone Sod Succ/PF 100 mg/2 ml Vial IVP SCH ×2 (06:29→11:45)
[2020-02-11] MEDS: Nitroglycerin 2% Ointment 1 INCH/1 GM Packet TOP SCH ×2 (06:29→13:28)
[2020-02-11 07:12] LABS: Actual Bicarbonate (HCO3a) 34.1 mEq/L (22-28); Base Excess (BEa) 5.6 mEq/L (-2.0 to +3.0); Calcium, Ionized (arterial) 1.25 mmol/L (1.12-1.30); Carboxyhemoglobin (COHb) 0.8 gm% (0.0-3.0); Hemoglobin (Hb) 11.5 g/dL (14.0-18.0); Potassium - ABG Lab 4.58 mmol/L (3.70-5.30); pH, Arterial 7.29 (7.35-7.45)
[2020-02-11 07:28] LABS: CO2 Tension 72.2 mmHg (35.0-45.0); O2 Tension (PaO2), arterial 43.4 mmHg (> 70.0); Puncture Site RR
--- NOTE | 2020-02-11 07:59 | RAD ---
EXAM: CHEST ONE VIEW HISTORY: Pneumonia. Follow-up evaluation. COMPARISON: 02/10/2020 FINDINGS: Endotracheal tube, left-sided vascular catheter, and nasogastric tube remain in place and unchanged i n position. There is evidence of bilateral pleural effusions. Increased interstitial and patchy parenchymal opacities are seen at each lung base. Emphysematous changes are again seen within the gunner gs with greater degree of bullous emphysematous changes in the right upper lung zone. Chest is overall unchanged from prior study. IMPRESSION: Stable chest.
[2020-02-11] MEDS: cefTRIAXone\\ROCEPHIN 1 GM in Sodium Chloride 0.9% 100 ML IVPB SCH (08:20)
[2020-02-11] MEDS: Famotidine 20 MG TAB PER TUBE SCH (08:21)
[2020-02-11] MEDS: Enoxaparin Sodium 40 MG/0.4 ML SYRINGE SC SCH (08:21)
[2020-02-11] MEDS: NPH, Human Insulin Isophane 300 UNIT/3 ML VIAL SC SCH (08:21)
--- NOTE | 2020-02-11 09:04 | PDOC.FMACP ---
Advance Care Planning - Problem (1) Pneumonia due to COVID-19 virus Status: Acute Code(s): U07.1 - COVID-19; J12.89 - OTHER VIRAL PNEUMONIA (2) Acute respiratory failure due to COVID-19 Status: Acute Code(s): U07.1 - COVID-19; J96.00 - ACUTE RESPIRATORY FAILURE, UNSP W HYPOXIA OR HYPERCAPNIA (3) Acute respiratory failure with hypoxemia Status: Acute Code(s): J96.01 - ACUTE RESPIRATORY FAILURE WITH HYPOXIA (4) Palliative care encounter Status: Acute Code(s): Z51.5 - ENCOUNTER FOR PALLIATIVE CARE (5) Diabetes mellitus type 2 in nonobese Status: Chronic Code(s): E11.9 - TYPE 2 DIABETES MELLITUS WITHOUT COMPLICATIONS (6) Hypertension Status: Chronic Code(s): I10 - ESSENTIAL (PRIMARY) HYPERTENSION Qualifiers: Hypertension type: essential hypertension Qualified Code(s): I10 - Essential (primary) hypertension (7) Acute kidney injury Status: Resolved Code(s): N17.9 - ACUTE KIDNEY FAILURE, UNSPECIFIED - Note Summary: Advanced Care Planning was discussed. The diagnosis, prognosis and goals of care were discussed. Appropriate forms and documentation to accomplish the goals of care were discussed. All questions were answered. The Palliative Care Team will be engaged to assist with completion of any outstanding forms that are needed. patient status changed to DNAR Time Spent (mins): 45
--- NOTE | 2020-02-11 09:26 | PDOC.PALPN ---
Palliative Progress Note - Subjective Mechanical ventilation, poor pulmonary perfusion. - Objective Vital Signs: Vital Signs - Most Recent Temp Pulse Resp BP Pulse Ox 100.0 F H 109 H 26 H 153/74 H 89 L 02/11/20 04:00 02/11/20 06:22 02/11/20 08:00 02/11/20 06:22 02/10/20 20:00 - Physical Exam Constitutional: encephalitic, ill appearing HEENT: moist MMs Respiratory: diminished lung sound, labored respirations Deviation from normal: mechanical ventilation Cardiovascular: RRR Deviation from normal: Tachycardia Gastrointestinal: incontinent Genitourinary: jefferson catheter Musculoskeletal: edema present Skin: no lesions, no rash, fragile Deviation from normal: encephalopathic - Assessment (1) Acute respiratory failure due to COVID-19 Code(s): U07.1 - COVID-19; J96.00 - ACUTE RESPIRATORY FAILURE, UNSP W HYPOXIA OR HYPERCAPNIA Current Visit: Yes Status: Acute (2) Acute respiratory failure with hypoxemia Code(s): J96.01 - ACUTE RESPIRATORY FAILURE WITH HYPOXIA Current Visit: Yes Status: Acute (3) Diabetes mellitus type 2 in nonobese Code(s): E11.9 - TYPE 2 DIABETES MELLITUS WITHOUT COMPLICATIONS Current Visit: Yes Status: Chronic (4) Hypertension Code(s): I10 - ESSENTIAL (PRIMARY) HYPERTENSION Current Visit: Yes Status: Chronic Qualifiers: Hypertension type: essential hypertension Qualified Code(s): I10 - Essential (primary) hypertension (5) Palliative care encounter Code(s): Z51.5 - ENCOUNTER FOR PALLIATIVE CARE Current Visit: Yes Status: Acute - Plan Plan: Assessed patient, met and visited with at bedside. Transitioned conversation to conference room to meet with Dr Tubbs. agreed to transition to DNAR. Life review of her , over 40 years, two children. 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 Generous with less fortunate in his community. Provided Ipad to to call/communicate with patient sister in [place]. Emotional support, therapeutic listening. DNAR document completed, Dr Tubbs placed order. Spiritual Care involved [60] minutes spent on this encounter with >50% of the time in counseling and coordination of care. - ROS Non Response: due to endotracheal tube, due to mental status
[2020-02-11] MEDS: Nystatin Cream 15 GM TUBE TOP SCH (09:58)
[2020-02-11 13:04] VITALS: BMI 29.6
--- NOTE | 2020-02-11 13:35 | PRG ---
DATE OF SERVICE: 02/11/2020 SUBJECTIVE: Mr. Duque's met with the hospitalist this morning. They made him a DNR again. I wholeheartedly support this decision. His gas exchange has deteriorated overnight. He is on 100% oxygen. OBJECTIVE: VITAL SIGNS: Respiratory rates in the 20s, blood pressure 150/75, heart rate is 130. LUNGS: Unchanged. HEART: Unchanged. ABDOMEN: Unchanged. LABORATORY DATA: White count 15.6, hemoglobin 10.6, platelets 382. Sodium 146, potassium 4.6, chloride 107, bicarb 31, BUN 45, creatinine 0.7. IMPRESSION: 1. Respiratory failure with COVID-19 pneumonia. 2. Severe apical bullous lung disease. An alpha-1 antitrypsin level has been sent. Apparently, a [id number] has called from [place], talked to the radiologic technologist chief of the hospital, wanting to know if there is some experimental care that he had read about that could be used. Mr. Duque's only option would be ECMO at this time and I doubt it would change his chances of survival. I do not feel he could even be switched from mechanical ventilation to Ambu bag ventilation or switched from an ICU ventilator to a portable ventilator without becoming extremely hypoxic and probably dying. The biggest part of his problem in addition to his COVID pneumonia is his severe apical bullous lung disease of unclear etiology. He also, like a lot of these patients with severe COVID pneumonia, was an uncontrolled diabetic on presentation with a glucose of 456. There is little else to offer except for comfort. is at the bedside. Job ID: [id number]
[2020-02-11 14:33] VITALS: BP 117/69
--- NOTE | 2020-02-11 16:40 | PDOC.HOSPP ---
- Subjective Encounter Date: 02/11/20 Encounter Time: 16:37 Subjective: intubated - Objective Vital Signs & Weight: Vital Signs (12 hours) Pulse Resp BP Pulse Ox 02/11/20 15:42 26 H 02/11/20 14:29 139 H 117/69 02/11/20 14:00 26 H 02/11/20 12:00 26 H 02/11/20 10:00 26 H 02/11/20 09:53 131 H 155/81 H 02/11/20 08:00 26 H 80 L 02/11/20 06:22 109 H 153/74 H 02/11/20 06:00 26 H Weight Admit Weight 188 lb Weight 212 lb 8.41 oz Most Recent Monitor Data Heart Rate from ECG 133 NIBP 76/51 NIBP BP-Mean 59 Respiration from ECG 26 SpO2 78 I&O: 02/10/20 02/11/20 02/12/20 06:59 06:59 06:59 Intake Total 3104.4 2864 350 Output Total 2050 1910 525 Balance 1054.4 954 -175 Result Diagrams: 02/11/20 04:45 02/11/20 04:45 Additional Labs: Accuchecks 02/11/20 02/11/20 02/11/20 13:40 08:46 04:50 POC Glucose 196 H 185 H 121 H 02/11/20 00:11 POC Glucose 155 H Hospitalist ROS - Medication Medications: Active Medications Generic Name Dose Route Start Last Admin Trade Name Freq PRN Reason Stop Dose Admin Acetaminophen 650 mg 02/07/20 18:50 02/10/20 23:15 Acetaminophen 650 Mg/20.3 Ml Udcup PO 650 mg Q4H PRN Administration pain/fever Enoxaparin Sodium 40 mg 02/01/20 21:00 02/11/20 08:21 Lovenox SC 40 mg BID DHAVAL Administration Famotidine 20 mg 02/04/20 09:00 02/11/20 08:21 Famotidine 20 Mg Tab PER TUBE 20 mg BID DHAVAL Administration Hydrocortisone Sodium Succinate 50 mg 02/05/20 12:00 02/11/20 11:45 Hydrocortisone Sod Succ/Pf 100 Mg/2 Ml Vial IVP 50 mg Q6HR DHAVAL Administration Norepinephrine Bitartrate 250 mls @ 0 mls/hr 01/31/20 13:00 02/03/20 01:34 Levophed IVPB 250 mls INF DHAVAL Administration Protocol Titrate Ceftriaxone Sodium 1 gm/ 100 mls @ 200 mls/hr 02/03/20 09:00 02/11/20 08:20 Sodium Chloride IVPB 100 mls 0900 DHAVAL Administration Sodium Chloride 1,000 mls @ 50 mls/hr 02/04/20 09:00 02/11/20 03:23 1/2 Normal Saline IV 1,000 mls .Q20H DHAVAL Administration Fentanyl Citrate 2,000 mcg/ 100 mls @ 0 mls/hr 02/10/20 14:00 02/11/20 04:33 Sodium Chloride IV 100 mls INF DHAVAL Administration Protocol Per Protocol Insulin Human Lispro 0 units 01/31/20 12:53 02/11/20 14:00 Humalog SC 2 unit .MODERATE SLIDING SC PRN Administration Moderate Correctional Scale Insulin Human NPH 30 unit 02/04/20 09:00 02/11/20 08:21 Nph, Human Insulin Isophane 300 Unit/3 Ml Vial SC 30 unit BID DHAVAL Administration Nitroglycerin 0.5 inch 01/31/20 14:00 02/11/20 13:28 Nitro-Bid 2% Ointment TOP 0.5 inch Q8HR DHAVAL Administration Nystatin 1 gm 01/31/20 21:00 02/11/20 09:58 Mycostatin Cream TOP Not Given BID DHAVAL Propofol 1,000 mg 01/31/20 13:09 02/11/20 13:29 Diprivan IV 03/01/20 13:09 1,000 mg INF PRN Administration TO ACHIEVE GOAL RASS Protocol Sodium Chloride 10 ml 01/31/20 21:00 02/11/20 08:21 Flush - Normal Saline IVF 10 ml Q12HR DHAVAL Administration Vecuronium [place] 10 mg 02/08/20 13:59 02/09/20 09:55 Vecuronium 10 Mg Vial IV 10 mg Q1H PRN Administration Agitation - Exam Neck: no JVD Heart: RRR Respiratory - other findings: diffuse coarse BS Gastrointestinal: soft, non-tender, normal bowel sounds Extremities: no edema Hosp A/P (1) Pneumonia due to COVID-19 virus Code(s): U07.1 - COVID-19; J12.89 - OTHER VIRAL PNEUMONIA Status: Acute (2) Acute respiratory failure due to COVID-19 Code(s): U07.1 - COVID-19; J96.00 - ACUTE RESPIRATORY FAILURE, UNSP W HYPOXIA OR HYPERCAPNIA Status: Acute (3) Acute respiratory failure with hypoxemia Code(s): J96.01 - ACUTE RESPIRATORY FAILURE WITH HYPOXIA Status: Acute (4) Palliative care encounter Code(s): Z51.5 - ENCOUNTER FOR PALLIATIVE CARE Status: Acute (5) Diabetes mellitus type 2 in nonobese Code(s): E11.9 - TYPE 2 DIABETES MELLITUS WITHOUT COMPLICATIONS Status: Chronic (6) Hypertension Code(s): I10 - ESSENTIAL (PRIMARY) HYPERTENSION Status: Chronic Qualifiers: Hypertension type: essential hypertension Qualified Code(s): I10 - Essential (primary) hypertension (7) Acute kidney injury Code(s): N17.9 - ACUTE KIDNEY FAILURE, UNSPECIFIED Status: Resolved - Plan despite bi-level pressure support, FIO2 100%,patients O2 sat dropping below 80 discussed and confirmed change to DNAR status with vent dependent, on 100% O2 on iv steroids on anticoag on iv anti-bx covaescent plasma accu/ss discuss with sander operator
[2020-02-11 16:46] VITALS: TEMP 98.9
--- NOTE | 2020-02-12 12:36 | DIS ---
DATE OF ADMISSION: 01/31/2020 DATE OF DISCHARGE: 02/11/2020 PRIMARY CARE PHYSICIAN: None listed. : 02/11/2020 at 5:15 p.m. FINAL DIAGNOSES: Respiratory failure acute with hypoxia due to COVID pneumonia, diabetes mellitus type 2, hypertension, acute renal failure. HOSPITAL COURSE: The patient was admitted through the emergency room to the hospitalist service who presented with shortness of breath. He was unable to give any history as he was intubated. Apparently, he had COVID symptoms since January 20 and is known COVID positive. He was apparently doing well until he had acute shortness of breath and coughing. EMS was called. He had an O2 sat in the 30s and intubated in the field. He was moved to the ICU on a ventilator. Dr. Riley Little was consulted. He was initially started on prone position ventilation in bilevel mode, IV steroids, and convalescent plasma. He was started on anticoagulation and placed on an insulin drip for blood sugar control. was told that he was at very high risk at that time per the chart. His initial chest x-ray demonstrated marked bilateral lower lobe infiltrates. ET tube was present and approached the shanna. Partial withdrawal was suggested. CT angiogram done at the same time of the chest. Findings consistent with COVID pneumonia with emphysematous changes involving the entirety of the lungs. His initial laboratory; white count 16.5, hemoglobin 15.5 with an absolute neutrophilia and a low lymphocyte count consistent with COVID pneumonia. His D-dimer at that time was 11.96. Arterial blood gas showed a pH of 7.45 with a CO2 of 46 and O2 of 51. Initial lytes showed a creatinine of 1.65, BUN of 51, CO2 of 20, potassium 4.0, sodium 132. Lactic acid 4.7, followup 6.0. C-reactive protein was 12.58. Troponin was 0.069. With the steroids, his blood sugars initially ran in the greater than 500 range. His initial one was 456. Chest x-rays were monitored on a daily basis. They consistently had widespread areas of pneumonia. On 02/04/2020, he was still on mechanical ventilation. Physical exam was unchanged. His renal insufficiency was improved with a creatinine of 1.0. He had been changed from IV insulin to Lantus and was now being changed to NPH insulin given twice a day. He continued with steroids and antibiotics. He was initially hypotensive and required Levophed support for his blood pressure. It was weaned off about 02/03. On 02/03, his blood pressure was running 127/74 in that range. Early on, he had blood pressures as low as 67/47 before instituting the pressure support. On 02/06, ventilatory leak was detected and not able to be controlled. He had a re-intubation after removing the old tube. At that point, his breathing pattern was improved. He still had diffuse coarse rales. Regular rate and rhythm. At that point, his pertinent laboratories were sodium 144, potassium 4.6, BUN 38, creatinine 0.75. Blood sugars were maintained in the 100 to 200 range. His white count was 13.6, hemoglobin was 10.6, neutrophils were high, and lymphocytes were low. Blood and urine cultures done on admission failed to ever show improvement. On 02/09, his hemodynamics were still stable. Chest showed coarse breath sounds in all colon. Heart had a regular rate and rhythm. Laboratories were unremarkable. On 02/10, he was noted to be desaturating heavily on 100% O2. He developed a tachycardia. The was distressed to find out that he was doing worse. I spent about 45 minutes with her. His status was changed from full code to DNR. This afternoon, his desaturation continued to get worse. It was below 80% on bilevel pressure support and FiO2 of 100 this morning. He developed tachycardia. Then, his rate slowed and he eventually went asystolic. He was pronounced by the nurse at bedside at 5:15 p.m. After learning that he had , I closed up what I was doing and went to see if I could be of any further interest or any further assistance to the , staff, etc. The had requested just to be left alone in the room with him. No autopsy was requested. The patient was discharged to home. Job ID: [id number]
== END 2020-02-11 17:15 | disposition expired | DRG 870 ==
LOC: ERS 08:44 → CCU 10:32
PROVIDERS: ADMIT Internal Medicine; ATTEND Internal Medicine
PROC: 0BH17EZ Insertion of Endotracheal Airway into Trachea, Via Natural or Artificial Opening (ICD-10-PCS; principal; 2020-01-31)
PROC: 5A1955Z Respiratory Ventilation, Greater than 96 Consecutive Hours (ICD-10-PCS; 2020-01-31)
PROC: 02HV33Z Insertion of Infusion Device into Superior Vena Cava, Percutaneous Approach (ICD-10-PCS; 2020-01-31)
PROC: 30233L1 Transfusion of Nonautologous Fresh Plasma into Peripheral Vein, Percutaneous Approach (ICD-10-PCS; 2020-01-31)
PROC: 0B21XEZ Change Endotracheal Airway in Trachea, External Approach (ICD-10-PCS; 2020-02-07)
DX: A41.89 Other specified sepsis (principal); U07.1 COVID-19; J96.01 Acute respiratory failure with hypoxia; J12.89 Other viral pneumonia; R65.21 Severe sepsis with septic shock; N17.9 Acute kidney failure, unspecified; G93.40 Encephalopathy, unspecified; T85.698A Other mechanical complication of other specified internal prosthetic devices, implants and grafts, initial encounter; Z66 Do not resuscitate; Z51.5 Encounter for palliative care; I10 Essential (primary) hypertension; E11.65 Type 2 diabetes mellitus with hyperglycemia; M10.9 Gout, unspecified; R53.81 Other malaise; Y83.9 Surgical procedure, unspecified as the cause of abnormal reaction of the patient, or of later complication, without mention of misadventure at the time of the procedure; J98.4 Other disorders of lung
CPT/HCPCS: 36415; 36416; 36430; 51702; 71045; 71275; 80048; 80053; 81003; 82103; 82553; 82728; 82805; 83605; 83735; 84100; 84484; 85025; 85379; 86140; 86850; 86900; 86901; 87040; 87086; 93005; 94002; 94003; 94760; 96365; 96367; 96375; 99292; C1751; J0456; J0696; J1650; J1720; J1815; J2060; J2704; J2930; J3010; J3475; J3490; J7050; J7070; J7611; P9017; Q9967; S0028